=== PATIENT | male | born 1945 | race Caucasian/White ===

== ENCOUNTER → 2017-01-31 | Day surgery (SDC) | payer BC ==
[2017-01-24 08:22] VITALS: BMI 34.0
[~2017-01-31] VITALS: Ht 175.3 cm; Wt 106.8 kg
[~2017-01-31] MED LIST: ASPCH81X PO; CALC600T9 PO; CARV12.52 PO; CYAN10005 PO; LIDOCAINE HCL 2% 2 ML VIAL (20MG/ML) ONE; MULT-513 PO; NTRGSL/4 UT; PANT40TA PO; PHENYLEPHRINE 100MCG/ML 5ML SYR ONE; PROPOFOL IV EMULSION 10 MG/ML 20 ML VIAL IV ONE; ROSU40TA PO; SODIUM CHLORIDE 0.9% 500ML 500 ML IV ONE; WARF5TAB90 PO; ZNTT/150 PO; [UNRECOGNIZED DRUG - CODE] PO
--- NOTE | 2017-01-31 09:53 | Endo History and Physical ---
History & Physical Date of Service: Jan 31, 2017. Chief Complaint: h/o polyps Referring Physician: History of Present Illness h/o polyps Past Medical History Diabetes, Angioplasty/Stent, Male Genitourinary Prob., Gastrointestinal Disorder , Reflux, Blood Dyscrasias, Cancer, High Cholesterol, Heart Disease, Hypertension, Thrombophlebitis, COPD, Implantable Defibrillator, Other, [place] Past Surgical History Hx Cardiac Surgery: Yes (CABG X 2; 6 TOTAL STENTS; MULTIPLE CARDIAC CATHS) Hx Internal Defibrillator: Yes ([employer]TRON[employer] DEVICE) Hx Pacemaker: Yes (MEDTRON[employer] DEVICE) Hx Abdominal Surgery: Yes ([facility]) Hx of Implantable Prosthesis: No Hx Post-Op Nausea and Vomiting: No Hx Cancer Surgery: Yes (RT EAR EXCISION) Hx Thoracic Surgery: No Hx Orthopedic: No Hx Urinary Tract Surgery: No Family History Colon CA, Polyp Social History Smoking Status: Never Smoker Hx Substance Use: No Hx Alcohol Use: No Allergies Coded Allergies: Lisinopril (Verified Allergy, Unknown, COUGH, 01/24/17) Milk Protein Extract (Verified Allergy, Unknown, HIVES, 01/24/17) Mometasone (Verified Allergy, Unknown, HIVES, 01/24/17) Morphine (Verified Allergy, Unknown, UNKNOWN, 01/24/17) Niacin (Verified Allergy, Unknown, FLUSHING AND ITCHING, 01/24/17) Adhesives (Verified Adverse Reaction, Unknown, OPSITE DRESSING = RASH, ) Pregabalin (Verified Adverse Reaction, Unknown, MOOD CHANGES, 01/24/17) Valsartan (Verified Adverse Reaction, Unknown, COUGH, 01/31/17) Current Medications Reported Home Medications Medications Dose Route/Sig Max Daily Dose Days Date Category Dose Instructions Zantac (Ranitidine HCl) 150 Mg Tab 2 Tab PO HS 01/24/17 Reported Protonix (Pantoprazole Sodium) 40 Mg Tab 40 Mg PO QAM 01/24/17 Reported Coreg (Carvedilol) 12.5 Mg Tab 12.5 Mg PO BID 01/24/17 Reported Crestor (Rosuvastatin Calcium) 40 Mg Tab 40 Mg PO QPM 01/24/17 Reported Calcium + D (Calcium Carbonate-Vitamin D) 1 Tab Tab 1 Tab PO QAM 01/24/17 Reported Aspirin Chewable (Aspirin) 81 Mg Chew 81 Mg PO QAM 01/24/17 Reported Iron Chews Pediatric (Carbonyl Iron) 15 Mg Chw 15 Mg PO DAILY PRN 12/31/13 Reported Vitamin B-12 (Cyanocobalamin) 1,000 Mcg Tab 1,000 Mcg PO PRN 12/31/13 Reported Coumadin (Warfarin Sodium) 5 Mg Tab 5 Mg PO UD 12/31/13 Reported TAKE DIRECTED BY ANTICOAGULATION CLINIC. @ PRESENT TAKES 7.5MG EVERY DAY EXCEPT MON TAKES 5 MG. Mvi With Minerals (Multivitamins/Minerals) Tab 1 Tablet PO QAM 06/15/11 Reported Nitrostat (Nitroglycerin) 0.4 Mg Tab 0.4 Mg UT PRN 06/15/11 Reported Vital Signs Weight (Kilograms): 106.82 Height (Feet): 5 Height (Inches): 9 Physical Exam General Appearance: WD/WN, no apparent distress Assessment and Plan colonoscopy today.
[2017-01-31 09:58] VITALS: Ht 175.3 cm; Wt 106.8 kg
--- NOTE | 2017-01-31 10:46 | Discharge Instructions ---
Endoscopy Patient Instructions Date / Procedure(s) Performed Jan 31, 2017. Colonoscopy Allergy Information Coded Allergies: Lisinopril (Verified Allergy, Unknown, COUGH, 01/24/17) Milk Protein Extract (Verified Allergy, Unknown, HIVES, 01/24/17) Mometasone (Verified Allergy, Unknown, HIVES, 01/24/17) Morphine (Verified Allergy, Unknown, UNKNOWN, 01/24/17) Niacin (Verified Allergy, Unknown, FLUSHING AND ITCHING, 01/24/17) Adhesives (Verified Adverse Reaction, Unknown, OPSITE DRESSING = RASH, ) Pregabalin (Verified Adverse Reaction, Unknown, MOOD CHANGES, 01/24/17) Valsartan (Verified Adverse Reaction, Unknown, COUGH, 01/31/17) Discharge Date / Findings Jan 31, 2017. diverticulosis Medication Instructions Stopped Medication(s): ASPIRIN, COUADIN. VITAMINS-LAST DOSE 01/25/17 CRESTOR-LAST DOSE 01/29/17 Restart Stopped Medication(s): OK to resume home medications as above Provider Instructions Activity Restrictions - No exercising or heavy lifting for 24 hours. - Do not drink alcohol the day of the procedure. - Do not drive a car or operate machinery until the day after the procedure. - Do not make any important decisions or sign important papers in 24 hours after the procedure. Following Day: - Return to full activity which may include returning to work/school. Diet Start your diet with liquids and light foods (jello, soup, juice, toast). Then eat your usual diet if not nauseated. Treatment For Common After Affects For mild abdominal pain, bloating, or excessive gas: - Rest - Eat lightly - Lie on right side Follow-Up Information Follow-up with DR RILEY as scheduled Anesthesia Information What You Should Know You have had a procedure that required some medicine to reduce anxiety and discomfort. This treatment is called moderate sedation. After receiving the treatment, you may be sleepy, but you will be able to breathe on your own. The effects of the treatment may last for several hours. Follow these instructions along with Activity/Diet recommendations noted above: * Do NOT do anything where dizziness or clumsiness would be dangerous. * Rest quietly at home today, then you can be up and about tomorrow. * Have a responsible person stay with you the rest of today. * You may have had an I.V. today. If so, you may take the dressing off later today. Recommendations Call your doctor if: * Trouble breathing * Continuous vomiting for more than 24 hours * Temperature above 101 degrees * Severe abdominal pain or bloating * Pain not relieved by pain medicine ordered * There is increased drainage or redness from any incision * A large amount of rectal bleeding greater than 2-3 tablespoons. (If you had a polyp/s removed or have hemorrhoids, a small amount of blood - from the rectum is to be expected.) * You have any unanswered questions or concerns. IN THE EVENT OF A SERIOUS EMERGENCY, GO TO THE NEAREST EMERGENCY ROOM Your discharge instructions were prepared by provider Diane Rachel. Patient Instructions Signature Page Daniel Norton Patient (or Guardian) Signature/Date: I have read and understand the instructions given to me by my caregivers. Caregiver/RN/Doctor Signature/Date: The above-named patient and/or guardian has received patient instructions on this date. + Original Patient Signature Page (only) stays with chart. Please make copy for patient.
--- NOTE | 2017-01-31 10:46 | GI REPORT ---
Procedure Date: 01/31/2017 9:57 AM Procedure: Colonoscopy Indications: Surveillance: Personal history of adenomatous polyps on last colonoscopy 3 years ago Medicines: Propofol per Anesthesia Complications: No immediate complications. Estimated blood loss: None. Estimated Blood Loss: Estimated blood loss: none. Procedure: Pre-Anesthesia Assessment: - Prior to the procedure, a History and Physical was performed, and patient medications, allergies and sensitivities were reviewed. The patient's tolerance of previous anesthesia was reviewed. - The risks and benefits of the procedure and the sedation options and risks were discussed with the patient. All questions were answered and informed consent was obtained. - Patient identification and proposed procedure were verified prior to the procedure by the physician and the nurse. The procedure was verified in the pre-procedure area in the procedure room. - Mental Status Examination: alert and oriented. Airway Examination: normal oropharyngeal airway and neck mobility. Respiratory Examination: clear to auscultation. CV Examination: normal. Abdominal Examination: bowel sounds present, abdomen soft and non-tender, no masses or organomegaly noted. - ASA Grade Assessment: III - A patient with severe systemic disease. After I obtained informed consent, the scope was passed under direct vision. Throughout the procedure, the patient's blood pressure, pulse, and oxygen saturations were monitored continuously. The scope was introduced through the anus with the intention of advancing to the cecum. The scope was advanced to the ascending colon before the procedure was aborted. Medications were given. The patient tolerated the procedure well. The colonoscopy was performed with difficulty due to ventral hernia. Successful completion of the procedure was aided by using manual pressure and straightening and shortening the scope to obtain bowel loop reduction. The patient tolerated the procedure fairly well. The quality of the bowel preparation was good. Findings: The perianal and digital rectal examinations were normal. Pertinent negatives include normal sphincter tone and no palpable rectal lesions. Multiple small and large-mouthed diverticula were found in the entire colon. The retroflexed view of the distal rectum and anal verge was normal and showed no anal or rectal abnormalities. Impression: - Diverticulosis in the entire examined colon. - Unable to advance scope beyond the ascending colon secondary to looping and ventral hernia. - The distal rectum and anal verge are normal on retroflexion view. - No specimens collected. Recommendation: - Repeat colonoscopy in 1 year because the examination was incomplete and for surveillance. - Return to primary care physician as previously scheduled. - Discharge patient to home. Diane Rachel D.O. Diane Rachel DO 01/31/2017 10:45:48 AM This report has been signed electronically. Note Initiated On: 01/31/2017 9:57 AM I attest to the content of the Intraoperative Record and orders documented therein, exceptions below
[2017-01-31 11:16] VITALS: BP 114/72; PULSE 64; O2SAT 95
--- NOTE | 2017-01-31 11:29 | Anesthesiology Progress Note ---
Anesthesia Post Op Note Date & Time Jan 31, 2017 at 11:29 Vital Signs Pain Intensity: 0 Vital Signs Past 12 Hours Date Time Temp Pulse Resp B/P (MAP) Pulse Ox O2 Delivery O2 Flow Rate FiO2 01/31/17 11:16 64 16 114/72 (86) 95 Room Air 01/31/17 11:01 68 16 112/77 (89) 93 Room Air 01/31/17 10:46 73 14 109/69 (82) 95 Room Air 01/31/17 09:57 36.6 80 20 126/74 (91) 96 Room Air Notes Mental Status: alert / awake / arousable, participated in evaluation Pt Amnestic to Procedure: Yes Nausea / Vomiting: adequately controlled Pain: adequately controlled Airway Patency, RR, SpO2: stable & adequate BP & HR: stable & adequate Hydration State: stable & adequate Anesthetic Complications: no major complications apparent Awake, doing well, VSS.
== END | disposition home or self-care (01) ==
LOC: C.GI 09:25
PROVIDERS: ATTEND Internal Medicine
DX: Z12.11 Encounter for screening for malignant neoplasm of colon (principal); Z86.010 Personal history of colon polyps; K57.30 Diverticulosis of large intestine without perforation or abscess without bleeding; I25.2 Old myocardial infarction; I25.10 Atherosclerotic heart disease of native coronary artery without angina pectoris; Z95.1 Presence of aortocoronary bypass graft; Z95.5 Presence of coronary angioplasty implant and graft; E78.00 Pure hypercholesterolemia, unspecified; E11.9 Type 2 diabetes mellitus without complications; J44.9 Chronic obstructive pulmonary disease, unspecified; D75.9 Disease of blood and blood-forming organs, unspecified; Z80.0 Family history of malignant neoplasm of digestive organs; Z95.810 Presence of automatic (implantable) cardiac defibrillator; Z79.01 Long term (current) use of anticoagulants; Z79.82 Long term (current) use of aspirin; Z79.899 Other long term (current) drug therapy

== ENCOUNTER 2023-08-22 15:51 | Inpatient (IN) ==
--- NOTE | 2023-08-22 16:41 | Emergency Department Note ---
Impression & Plan Hypoxia, Elevated troponin, Cough ED Provider Note NAME: HARJIT FRANCOIS AGE: 78 SEX: M : 1945 ARRIVES VIA: Walk-In INFORMANT: Patient ED PROVIDER(S): Jose Darnell DO CHIEF COMPLAINT: shortness of breath HPI: Patient is a 78-year-old male with a past medical history of an ICD, TB who presents to the ER for shortness of breath associated with a cough, congestion, runny nose, and a sore throat. Symptoms started 3 days ago. They have been progressing. He had an episode with coughing where he almost vomited. He denies any chest pain or belly pain. No nausea. No dysuria, urgency, or frequency. He normally does not wear oxygen. He denies any other exacerbating or remitting factors. ADDITIONAL HISTORY OBTAINED: Per HPI Chronic Medical/Social Conditions Affecting Care: Per HPI PAST MEDICAL HISTORY:See Below PAST SURGICAL HISTORY:See Below FAMILY HISTORY:See Below SOCIAL HISTORY:See Below HOME MEDICATIONS:See Below ALLERGIES:See Below VITALS:See Below PHYSICAL EXAMINATION: GENERAL: Sitting up in bed, alert, slightly ill-appearing with intermittent cough EYE EXAM: normal conjunctiva. PERRL and EOM's grossly intact. OROPHARYNX: no exudate, no erythema, lips, buccal mucosa, and tongue normal and mucous membranes are moist LUNGS: Faint wheezing bilateral. Normal chest wall mechanics HEART: no murmurs, S1 normal and S2 normal ABDOMEN: abdomen soft, non-tender, normo-active bowel sounds, no masses, no rebound or guarding. UPPER EXTREMITIES: upper extremities are grossly normal. LOWER EXTREMITIES: No pitting edema. Calves are equal bilaterally NEURO EXAM: Normal sensorium, cranial nerves II-XII grossly intact, normal speech, no gross weakness of arms, no gross weakness of legs. MEDICAL DECISION MAKING: Patient is a 78-year-old male who presents ER for above-stated complaint. IV was established blood work was obtained. Labs show no significant leukocytosis or anemia. INR unremarkable. BMP along with LFTs bilirubin was remarkable for T. bili of 1.1. Lactic acid 1.5. Troponin elevated at 20.7. Viral panel was negative. Based on symptoms I do favor is most consistent with a viral URI. He was given Rocephin and azithromycin. He was also given IV fluids. He was updated bedside. He remained on 2 L nasal cannula while in the ER. Discussed the case with the hospitalist for further evaluation management and treatment. Did consider PE but in light of patient taking Eliquis I favor this much less likely and was not explored any further. Discussed the case with [place] hospitalist for further evaluation management treatment. Do favor the slightly full troponin is likely secondary to the hypoxia and demand ischemia. Consults/Care Managements Discussions: Per [facility] Triage Nursing notes reviewed. Limited review of prior medical records performed Vital Signs: reviewed and remarkable for hypoxic, tachycardic, hypertensive and borderline febrile Differential diagnosis: Differential diagnosis includes etiologies such as sepsis, UTI, pneumonia, metabolic, electrolyte abnormalities, cardiac sources, intracerebral event, toxicologic, neurological, as well as others were entertained. ER treatment provided: See below Diagnostics interpreted by me include EKG and cardiac monitoring as listed below: -Cardiac Monitoring: An order was placed for continuous cardiac monitoring. The monitor shows a rate of 70 with sinus rhythm. -ECG: Sinus rhythm rate of 79 Normal axis No PVCs QTc 387 -Laboratory studies:Interpreted by me as stated above in MDM and shown below. Imaging studies: Xrays: As interpreted by me: Portable AP upright 1 view of the chest shows no focal infiltrate CTs show: None Procedures: None Critical Care: I have personally spent 35 minutes of critical care time in the direct management of this patient. This includes bedside care, interpretation of diagnostic studies, and testing, discussion with consultants, patient, and family members, and other required patient management activities. This 35 minutes is in excess of all separately billable procedures. Past Med/Surg History Medical History Hx of basal cell carcinoma ear Lyme disease hx ~12/2020. no current issues. Sinus bradycardia History of blood clots JUNE 2020...PT REPORTS RECEIVED CHAYA AND CHAYA VACCINE ON JULY 10, 2020...2 WEEKS LATER BLOOD PRESSURE ELEVATED, ECHO DONE AND DX WITH BLOOD CLOT IN HEART...reason for plavix daily History of tuberculosis S - no current issues History of cough r/t gastric reflux Erythema nodosum BEEN TREATED IN PAST - no current issues Herniated disc LUMBAR AREA Osteoarthritis BPH (benign prostatic hyperplasia) Prediabetes Colon polyps PRE-CANCEROUS in 2020. 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 History of tooth extraction History of tonsillectomy History of endoscopic sinus surgery History of cholecystectomy lap choley History of heart artery stent TOTAL 4 STENTS PLACED 2003 [facility] TOTAL 2 STENTS 2009 IN [facility] History of cardiac cath 1996, 2003 (2 CARDIAC CATHS IN 2003) History of coronary artery bypass graft 2 VESSELS 1996 IN [place] Family History Aunt Family hx of colon cancer Family history of diabetes mellitus Grandmother Family history of diabetes mellitus Aunt Family hx of colon cancer Aunt Family hx of colon cancer Sister Family history of reaction to anesthesia "CAN'T REMEMBER" Social History Smoking Status: Never smoker Second Hand Exposure: No; Do You Dip or Chew Tobacco: No; Hx Alcohol Use: No Hx Substance Use: No Preferred Language: Sri Lankan Communication Ability: Effective Insulation Supervisor Required: No Beliefs That Will Affect Care: None Current Living Situation: Spouse Feels Safe at Home: Yes Assistive Devices: Glasses Allergies Allergies Allergy/AdvReac Type Severity Reaction Status Date / Time mometasone furoate Allergy Intermediate HIVES/RASH Verified 08/22/23 17:30 niacin Allergy Intermediate FLUSHING Verified 08/22/23 17:29 AND ITCHING pregabalin Allergy Intermediate RASH & Verified 08/22/23 17:29 MOOD CHANGES morphine Allergy Unknown UNKNOWN ON Verified 08/22/23 17:29 GMG MED LIST atorvastatin [From Lipitor] AdvReac Intermediate NEURO Verified 08/22/23 17:29 COMPLICATIONS lisinopril AdvReac Intermediate COUGH Verified 08/22/23 17:29 vaccine adjuvant system, AdvReac Intermediate INFLUENZA-LIKE Verified 08/22/23 17:29 [id number] liposomal ILLNESS [From Shingrix ()] valsartan AdvReac Intermediate Cough Verified 08/22/23 17:29 varicella-zoster virus AdvReac Intermediate INFLUENZA-LIKE Verified 08/22/23 17:29 glycoprotein E, recombinant ILLNESS [From Shingrix ()] adhesive AdvReac Mild OPSITE-RASH Verified 08/22/23 17:29 Home Meds Home Medications Medication Instructions Recorded Confirmed aspirin 81 mg tablet,delayed 81 mg PO DAILY 07/30/18 08/22/23 release (Jimmie Low Dose Aspirin) carvedilol 25 mg tablet (Coreg) 12.5 mg PO BID 07/30/18 08/22/23 pantoprazole 40 mg tablet,delayed 40 mg PO QAM 07/30/18 08/22/23 release (Protonix) rosuvastatin 40 mg tablet (Crestor) 20 mg PO DAILY 07/30/18 08/22/23 furosemide 20 mg tablet (Lasix) 20 mg PO 3XWK 09/22/20 08/22/23 nitroglycerin 0.4 mg sublingual 0.4 mg sublingual UD PRN Chest Pain 09/22/20 08/22/23 tablet (Nitrostat) multivitamin (Daily Multi-Vitamin 1 tab PO QAM 01/02/21 08/22/23 tablet) apixaban 5 mg tablet (Eliquis) 5 mg PO BID 03/21/23 08/22/23 benzonatate 100 mg capsule 100 - 200 mg PO TID PRN Cough 08/22/23 08/22/23 cyanocobalamin (vitamin B-12) 1,000 mcg PO DAILY 08/22/23 08/22/23 1,000 mcg tablet (Vitamin B-12) Results & Data (ED) Vital Signs Vital Signs - 24 hr 08/22/23 15:52 08/22/23 16:12 08/22/23 16:12 Temperature 37.6 C H Temperature Source Oral Pulse Rate 99 H Pulse Rate [Right Radial] Respiratory Rate 18 Blood Pressure 172/84 H Blood Pressure [Left Arm] Blood Pressure Mean 113 Blood Pressure Mean [Left Arm] Pulse Oximetry 90 85 L Oxygen Delivery Method Room Air Room Air Nasal Cannula Oxygen Flow Rate 2 Sepsis Recent Fever Within 48 Hours No Sepsis New/Unexplained Change in Mental Status N/A Sepsis Action Taken by Nursing No Action Required 08/22/23 16:56 08/22/23 18:00 Temperature Temperature Source Pulse Rate 83 Pulse Rate [Right Radial] 81 Respiratory Rate 20 Blood Pressure Blood Pressure [Left Arm] 141/86 H Blood Pressure Mean Blood Pressure Mean [Left Arm] 104 Pulse Oximetry 96 Oxygen Delivery Method Nasal Cannula Oxygen Flow Rate 2 Sepsis Recent Fever Within 48 Hours Sepsis New/Unexplained Change in Mental Status Sepsis Action Taken by Nursing Laboratory Data 08/22/23 17:15 08/22/23 17:15 Lab Results 08/22/23 08/22/23 08/22/23 Range/Units 16:01 16:01 16:01 WBC (4.8-10.8) K/ul RBC (4.70-6.10) M/uL Hgb (14.0-18.0) g/dl Hct (42.0-52.0) % MCV (80.0-100.0) fL MCH (25.0-34.0) pg MCHC (32.0-36.0) g/dL RDW Std Deviation (36.4-46.3) fL RDW Coeff of Jerilyn (11.5-14.5) % Plt Count (130-400) K/uL MPV (9.4-12.4) fL Immature Gran % (Auto) % Neut % (Auto) % Lymph % (Auto) % Canadian % (Auto) % Eos % (Auto) % Baso % (Auto) % Neut # (Auto) (1.40-6.50) K/uL Lymph # (Auto) (1.20-3.40) K/uL Canadian # (Auto) (0.11-0.59) K/uL Eos # (Auto) (0.00-0.50) K/uL Baso # (Auto) (0.00-0.20) K/uL Immature Gran # (Auto) (0.01-0.20) K/uL PT (9.0-12.0) Seconds INR (0.9-1.1) APTT (21-31) Seconds PTT Ratio Sodium (136-145) mmol/L Potassium (3.5-5.1) mmol/L Chloride (98-107) mmol/L Carbon Dioxide (21-32) mmol/L Anion Gap (3-11) BUN (6-23) mg/dl Creatinine (0.6-1.4) mg/dl Est Cr Clr Drug Dosing ml/min Est GFR ( Amer) ml/min Est GFR (Non-Af Amer) ml/min BUN/Creatinine Ratio (10-20) Glucose (70-99(Fasting)) mg/dl Lactate (0.4-2.0) mmol/L Calcium (8.6-10.3) mg/dl Total Bilirubin (0.2-1.0) mg/dl AST (13-39) U/L ALT (7-52) U/L Alkaline Phosphatase (34-104) U/L Troponin I High Sens (0-20) pg/ml Total Protein (6.0-8.3) gm/dl Albumin (3.4-5.0) gm/dl Globulin (2.5-4.0) gm/dl Albumin/Globulin Ratio (0.9-2) Adenovirus (PCR) Not Detected (NotDetected) B. pertussis DNA (PCR) Not Detected (NotDetected) B.parapertussis DNA PCR Not Detected (NotDetected) C. pneumoniae DNA (PCR) Not Detected (NotDetected) Coronavirus OC43 (PCR) Not Detected (NotDetected) Coronavirus HKU1 (PCR) Not Detected (NotDetected) Coronavirus 229E (PCR) Not Detected (NotDetected) SARS-CoV-2 (PCR) NEGATIVE Not Detected (Negative) Coronavirus NL63 (PCR) Not Detected (NotDetected) Human Metapneumovir PCR Not Detected (NotDetected) Influenza Type A (PCR) Negative Not Detected (Neg) Influenza Type B (PCR) Negative (Neg) M. pneumoniae (PCR) (NotDetected) Parainfluenza 1 (PCR) (NotDetected) Parainfluenza 2 (PCR) (NotDetected) Parainfluenza 3 (PCR) (NotDetected) Parainfluenza 4 (PCR) (NotDetected) RSV (RT-PCR) (Neg) RSV (PCR) (NotDetected) Entero/Rhino (PCR) (NotDetected) 08/22/23 08/22/23 Range/Units 16:01 17:15 WBC 8.92 (4.8-10.8) K/ul RBC 4.79 (4.70-6.10) M/uL Hgb 13.7 L (14.0-18.0) g/dl Hct 42.4 (42.0-52.0) % MCV 88.5 (80.0-100.0) fL MCH 28.6 (25.0-34.0) pg MCHC 32.3 (32.0-36.0) g/dL RDW Std Deviation 42.5 (36.4-46.3) fL RDW Coeff of Jerilyn 13.0 (11.5-14.5) % Plt Count 187 (130-400) K/uL MPV 10.9 (9.4-12.4) fL Immature Gran % (Auto) 0.7 % Neut % (Auto) 68.6 % Lymph % (Auto) 14.1 % Canadian % (Auto) 13.6 % Eos % (Auto) 2.6 % Baso % (Auto) 0.4 % Neut # (Auto) 6.12 (1.40-6.50) K/uL Lymph # (Auto) 1.26 (1.20-3.40) K/uL Canadian # (Auto) 1.21 H (0.11-0.59) K/uL Eos # (Auto) 0.23 (0.00-0.50) K/uL Baso # (Auto) 0.04 (0.00-0.20) K/uL Immature Gran # (Auto) 0.06 (0.01-0.20) K/uL PT 11.9 (9.0-12.0) Seconds INR 1.1 (0.9-1.1) APTT 34 H (21-31) Seconds PTT Ratio 1.2 Sodium 138 (136-145) mmol/L Potassium 4.0 (3.5-5.1) mmol/L Chloride 103 (98-107) mmol/L Carbon Dioxide 28 (21-32) mmol/L Anion Gap 7 (3-11) BUN 11 (6-23) mg/dl Creatinine 0.92 (0.6-1.4) mg/dl Est Cr Clr Drug Dosing 82.3 ml/min Est GFR ( Amer) 92.7 ml/min Est GFR (Non-Af Amer) 79.9 ml/min BUN/Creatinine Ratio 12.0 (10-20) Glucose 112 H (70-99(Fasting)) mg/dl Lactate 1.5 (0.4-2.0) mmol/L Calcium 9.1 (8.6-10.3) mg/dl Total Bilirubin 1.1 H (0.2-1.0) mg/dl AST 17 (13-39) U/L ALT 11 (7-52) U/L Alkaline Phosphatase 60 (34-104) U/L Troponin I High Sens 20.7 H (0-20) pg/ml Total Protein 6.7 (6.0-8.3) gm/dl Albumin 4.0 (3.4-5.0) gm/dl Globulin 2.7 (2.5-4.0) gm/dl Albumin/Globulin Ratio 1.5 (0.9-2) Adenovirus (PCR) (NotDetected) B. pertussis DNA (PCR) (NotDetected) B.parapertussis DNA PCR (NotDetected) C. pneumoniae DNA (PCR) (NotDetected) Coronavirus OC43 (PCR) (NotDetected) Coronavirus HKU1 (PCR) (NotDetected) Coronavirus 229E (PCR) (NotDetected) SARS-CoV-2 (PCR) (Negative) Coronavirus NL63 (PCR) (NotDetected) Human Metapneumovir PCR (NotDetected) Influenza Type A (PCR) (Neg) Influenza Type B (PCR) Not Detected (Neg) M. pneumoniae (PCR) Not Detected (NotDetected) Parainfluenza 1 (PCR) Not Detected (NotDetected) Parainfluenza 2 (PCR) Not Detected (NotDetected) Parainfluenza 3 (PCR) Not Detected (NotDetected) Parainfluenza 4 (PCR) Not Detected (NotDetected) RSV (RT-PCR) Negative (Neg) RSV (PCR) Not Detected (NotDetected) Entero/Rhino (PCR) Not Detected (NotDetected) Administered Medications Discontinued Medications Sodium Chloride (Nss) 1,000 mls @ 999 mls/hr IV .[id number] ONE Stop: 08/22/23 17:35 Last Infusion: 08/22/23 18:23 Dose: Infused Documented By: Admin: 08/22/23 17:16 Dose: 999 mls/hr Documented By: LILY Ceftriaxone Sodium (Rocephin) 2,000 mg in 50 mls @ 100 mls/hr IV NOW STA Stop: 08/22/23 18:51 Last Infusion: 08/22/23 19:09 Dose: Infused Documented By: Admin: 08/22/23 18:33 Dose: 100 mls/hr Documented By: LILY Imaging Data Radiologist's Impression: Chest X-Ray 08/22/23 16:02 XR chest 1V not portable CLINICAL HISTORY: Cough. COMPARISON STUDY: Chest radiograph April 07, 2021. FINDINGS: A left subclavian pacer/AICD and median sternotomy wires are incidentally noted. There is no pneumothorax or pleural effusion. Moderate elevation of the right hemidiaphragm is unchanged. Linear bibasilar densities favor atelectasis. There is no consolidation to suggest pneumonia. Cardiomegaly is unchanged. No evidence for pulmonary edema. IMPRESSION: No acute cardiopulmonary findings. No change in appearance of the chest. ACT 112: Negative or not required by law. Electronically signed by: Jeffery Patterson M.D. 08/22/2023 4:51 PM Discharge Plan Visit Data Chief Complaint: Flu Like Symptoms Stated Complaint: COUGH, FEELS WARM/FEVER ED Provider: Jose Darnell Discharge Problem: Hypoxia, Elevated troponin, Cough Forms Stand Alone Forms: My [facility] Prescriptions Prescriptions: No Action carvedilol [Coreg] 25 mg Tablet 12.5 mg PO BID aspirin [Jimmie Low Dose Aspirin] 81 mg Tablet,Delayed Release (Dr/Ec) 81 mg PO DAILY pantoprazole [Protonix] 40 mg Tablet,Delayed Release (Dr/Ec) 40 mg PO QAM rosuvastatin [Crestor] 40 mg Tablet 20 mg PO DAILY furosemide [Lasix] 20 mg Tablet 20 mg PO 3XWK Patient Comments: MON, MON AND MON MORNING HOURS Rx Instructions: Monday, Monday, Monday nitroglycerin [Nitrostat] 0.4 mg Tablet, Sublingual 0.4 mg sublingual UD PRN (Reason: Chest Pain) Patient Comments: pt can't remember the last time he used multivitamin [Daily Multi-Vitamin] Tablet 1 tab PO QAM Eliquis 5 mg Tablet 5 mg PO BID cyanocobalamin (vitamin B-12) [Vitamin B-12] 1,000 mcg Tablet 1,000 mcg PO DAILY benzonatate 100 mg capsule 100 - 200 mg PO TID PRN (Reason: Cough) Referrals Referrals: Riana Bennett CRNP [Primary Care Provider] - Discharge Problem: Cough Qualifiers: Cough type: unspecified Qualified Code(s): R05.9 - Cough, unspecified
--- NOTE | 2023-08-22 16:52 | XRay Report ---
XR chest 1V not portable CLINICAL HISTORY: Cough. COMPARISON STUDY: Chest radiograph April 07, 2021. FINDINGS: A left subclavian pacer/AICD and median sternotomy wires are incidentally noted. There is n o pneumothorax or pleural effusion. Moderate elevation of the right hemidiaphragm is unchanged. Linea r bibasilar densities favor atelectasis. There is no consolidation to suggest pneumonia. Cardiomegaly is unchanged. No evidence for pulmonary edema. IMPRESSION: No acute cardiopulmonary findings. No change in appearance of the chest. ACT 112: Negative or not required by law. Electronically signed by: Jeffery Patterson M.D. 08/22/2023 4:51 PM
[2023-08-22 16:58] LABS: Influenza A virus by PCR Negative (Neg); Influenza B virus by PCR Negative (Neg); RSV by PCR Negative (Neg); SARS CoV2 RNA(COVID-19) Ceph NEGATIVE (Negative)
[2023-08-22] MEDS: SODIUM CHLORIDE 0.9% 1,000 ML IV ONE (17:16)
[2023-08-22 17:37] LABS: Basophils # (auto) 0.04 K/uL (0.00-0.20); Basophils % (auto) 0.4 %; Eosinophils # (auto) 0.23 K/uL (0.00-0.50); Eosinophils % (auto) 2.6 %; Hematocrit (blood only) 42.4 % (42.0-52.0); Hemoglobin 13.7 g/dl (14.0-18.0); Immature Granulocytes # (auto) 0.06 K/uL (0.01-0.20); Immature Granulocytes % (auto) 0.7 %; Lymphocytes # (auto) 1.26 K/uL (1.20-3.40); Lymphocytes % (auto) 14.1 %; Mean Corpuscular Hemoglobin 28.6 pg (25.0-34.0); Mean Corpuscular Hgb Conc 32.3 g/dL (32.0-36.0); Mean Corpuscular Volume 88.5 fL (80.0-100.0); Mean Platelet Volume 10.9 fL (9.4-12.4); Monocytes # (auto) 1.21 K/uL (0.11-0.59); Monocytes % (auto) 13.6 %; Neutrophils # (auto) 6.12 K/uL (1.40-6.50); Neutrophils % (auto) 68.6 %; Platelet Count 187 K/uL (130-400); RDW Standard Deviation 42.5 fL (36.4-46.3); Red Blood Count 4.79 M/uL (4.70-6.10); White Blood Count 8.92 K/ul (4.8-10.8)
[2023-08-22 17:52] LABS: Adenovirus PCR Not Detected (NotDetected); Bordetella parapertussis PCR Not Detected (NotDetected); Bordetella pertussis PCR Not Detected (NotDetected); Chlamydia pneumoniae PCR Not Detected (NotDetected); Coronavirus 229E PCR Not Detected (NotDetected); Coronavirus CoV-2 (COVID19)PCR Not Detected (NotDetected); Coronavirus HKU1 PCR Not Detected (NotDetected); Coronavirus NL63 PCR Not Detected (NotDetected); Coronavirus OC43PCR Not Detected (NotDetected); Human Metapneumovirus PCR Not Detected (NotDetected); Influenza A PCR Not Detected (NotDetected); Influenza B PCR Not Detected (NotDetected); Mycoplasma pneumoniae PCR Not Detected (NotDetected); Parainfluenza Virus 1 PCR Not Detected (NotDetected); Parainfluenza Virus 2 PCR Not Detected (NotDetected); Parainfluenza Virus 3 PCR Not Detected (NotDetected); Parainfluenza Virus 4 PCR Not Detected (NotDetected); Respiratory Syncytial VirusPCR Not Detected (NotDetected); Rhinovirus/Enterovirus PCR Not Detected (NotDetected)
[2023-08-22 17:55] LABS: Albumin Globulin Ratio 1.5 (0.9-2); Bilirubin,Total 1.1 mg/dl (0.2-1.0); Calcium 9.1 mg/dl (8.6-10.3); Creatinine Clr Calc Pharmacy 82.3 ml/min; Est GFR (African American) 92.7 ml/min; Est GFR (Non-African American) 79.9 ml/min; Globulin 2.7 gm/dl (2.5-4.0); Total Protein 6.7 gm/dl (6.0-8.3)
[2023-08-22 18:01] LABS: Troponin I High Sensitivity 20.7 pg/ml (0-20)
[2023-08-22 18:12] LABS: INR 1.1 (0.9-1.1); Partial Thromboplastin Ratio 1.2; Partial Thromboplastin Time 34 Seconds (21-31); Prothrombin Time 11.9 Seconds (9.0-12.0)
[2023-08-22] MEDS: cefTRIAXone SODIUM 2,000 MG/50 ML BAG IV STA (18:33)
--- NOTE | 2023-08-22 18:48 | History & Physical Report ---
Date of Service August 22, 2023 Assessment & Plan (1) Acute hypoxic respiratory failure: (2) Cough: Plan Pt is a 78yoM with past medical history significant for type 2 diabetes, currently not on any medication, hyperlipidemia, chronic CAD status post CABG x2, status post 6 stents as per the patient, chronic systolic CHF, status post ICD and pacemaker, history of left ventricular mural thrombus on Eliquis, ischemic cardiomyopathy, hypertension, diverticulosis of colon, BPH, pernicious anemia admitted with acute hypoxic respiratory failure in the setting of a chronic cough.. 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) as well as many episodes of pneumonia Notes never smoked, no known sick contacts currently Presented to the ED for further evaluation, noted to be hypoxic in the 80s Biofire negative Chest XRAY with no acute changes VBG pending BNP pending Echo pending Chest CTA pending- noted pt on chronic anticoagulation Received empiric Rocephin and azithromycin in the ED chest xray indicates no pneumonia, pt without leukocytosis and afebrile, continue abx based on CTA chest results oxygen supplementation as needed Given chronicity of cough (pt notes years), pt Hx and new oxygen requirement, pulmonology consulted. Appreciate recs. symptomatic cough treatment Continue to monitor Elevated Trop CAD s/p stent placement HFrEF Pacemaker in situ Hx of mural thrombus HTN HLD EKG, trend trops, echo pending Significant cardiac Hx as above telemetry monitoring Continue home coreg, statin, aspirin, Eliquis and Lasix Consider cardiology consult for any noted lab/symptom changes from baseline Continue other home meds as ordered Diet: DMII/HH DVT prophylaxis: On home Eliquis Dispo: Med/Surg with tele History of Present Illness Chief Complaint: SOB Primary Care Provider: ALEIDA Chaves Pt is a 78yoM with past medical history significant for type 2 diabetes, currently not on any medication, hyperlipidemia, chronic CAD status post CABG x2, status post 6 stents as per the patient, chronic systolic CHF, EF of 40% to 45%, status post ICD and pacemaker, history of left ventricular mural thrombus on Eliquis, ischemic cardiomyopathy, hypertension, diverticulosis of colon, BPH, pernicious anemia admitted with acute hypoxic respiratory failure in the setting of a chronic cough.. 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 Presented to the ED for further evaluation, noted to be hypoxic in the 80s. Allergies Allergy/AdvReac Type Severity Reaction Status Date / Time mometasone furoate Allergy Intermediate HIVES/RASH Verified 08/22/23 17:30 niacin Allergy Intermediate FLUSHING Verified 08/22/23 17:29 AND ITCHING pregabalin Allergy Intermediate RASH & Verified 08/22/23 17:29 MOOD CHANGES morphine Allergy Unknown UNKNOWN ON Verified 08/22/23 17:29 GMG MED LIST atorvastatin [From Lipitor] AdvReac Intermediate NEURO Verified 08/22/23 17:29 COMPLICATIONS lisinopril AdvReac Intermediate COUGH Verified 08/22/23 17:29 vaccine adjuvant system, AdvReac Intermediate INFLUENZA-LIKE Verified 08/22/23 17:29 AS01B liposomal ILLNESS [From Shingrix (PF)] valsartan AdvReac Intermediate Cough Verified 08/22/23 17:29 varicella-zoster virus AdvReac Intermediate INFLUENZA-LIKE Verified 08/22/23 17:29 glycoprotein E, recombinant ILLNESS [From Shingrix (PF)] adhesive AdvReac Mild OPSITE-RASH Verified 08/22/23 17:29 Home Medications Medication Instructions Recorded Confirmed Type aspirin 81 mg tablet,delayed 81 mg PO DAILY 07/30/18 08/22/23 History release (Jimmie Low Dose Aspirin) carvedilol 25 mg tablet (Coreg) 12.5 mg PO BID 07/30/18 08/22/23 History pantoprazole 40 mg tablet,delayed 40 mg PO QAM 07/30/18 08/22/23 History release (Protonix) rosuvastatin 40 mg tablet (Crestor) 20 mg PO DAILY 07/30/18 08/22/23 History furosemide 20 mg tablet (Lasix) 20 mg PO 3XWK 09/22/20 08/22/23 History nitroglycerin 0.4 mg sublingual 0.4 mg sublingual UD PRN Chest Pain 09/22/20 08/22/23 History tablet (Nitrostat) multivitamin (Daily Multi-Vitamin 1 tab PO QAM 01/02/21 08/22/23 History tablet) apixaban 5 mg tablet (Eliquis) 5 mg PO BID 03/21/23 08/22/23 History benzonatate 100 mg capsule 100 - 200 mg PO TID PRN Cough 08/22/23 08/22/23 History cyanocobalamin (vitamin B-12) 1,000 mcg PO DAILY 08/22/23 08/22/23 History 1,000 mcg tablet (Vitamin B-12) Past Med/Surg History Medical History Hx of basal cell carcinoma ear Lyme disease hx ~12/2020. no current issues. Sinus bradycardia History of blood clots JUNE 2020...PT REPORTS RECEIVED CHAYA AND CHAYA VACCINE ON JULY 10, 2020...2 WEEKS LATER BLOOD PRESSURE ELEVATED, ECHO DONE AND DX WITH BLOOD CLOT IN HEART...reason for plavix daily History of tuberculosis S - no current issues History of cough r/t gastric reflux Erythema nodosum BEEN TREATED IN PAST - no current issues Herniated disc LUMBAR AREA Osteoarthritis BPH (benign prostatic hyperplasia) Prediabetes Colon polyps PRE-CANCEROUS in 2020. 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 History of tooth extraction History of tonsillectomy History of endoscopic sinus surgery History of cholecystectomy lap choley History of heart artery stent TOTAL 4 STENTS PLACED 2003 [facility] TOTAL 2 STENTS 2009 IN [facility] History of cardiac cath 1996, 2003 (2 CARDIAC CATHS IN 2003) History of coronary artery bypass graft 2 VESSELS 1996 IN [place] Family History Aunt Family hx of colon cancer Family history of diabetes mellitus Grandmother Family history of diabetes mellitus Aunt Family hx of colon cancer Aunt Family hx of colon cancer Sister Family history of reaction to anesthesia "CAN'T REMEMBER" Social History Smoking Status: Never smoker Second Hand Exposure: No; Do You Dip or Chew Tobacco: No; Hx Alcohol Use: No Hx Substance Use: No Preferred Language: Estonian Communication Ability: Effective Woolen Suiting Shrinker Required: No Beliefs That Will Affect Care: None Current Living Situation: Spouse Feels Safe at Home: Yes Assistive Devices: Glasses Review of Systems Review of Systems: All systems reviewed & are unremarkable except as noted in Subjective Physical Exam Physical Exam: General: Alert, oriented. No acute distress but sitting in chair at bedside rather than bed due to coughing fits Skin: No noted rashes or bruises Psych: Appropriate mood and affect Neuro: No gross deficits HEENT: NC/AT Chest: Nontender to palpation. CV: RRR Resp: Breath sounds decreased bilaterally, no increased effort of breathing. Abdomen: Soft, nontender, nondistended. Extremities: No edema in lower extremities bilaterally. Results & Data Results & Data Vital Signs (Past 12 Hours) Vital Signs Temp Pulse Pulse Resp BP BP Pulse Ox 08/22/23 18:00 81 20 141/86 H 96 08/22/23 16:56 83 08/22/23 16:12 08/22/23 16:12 85 L 08/22/23 15:52 37.6 C H 99 H 18 172/84 H 90 O2 Del Method O2 Flow Rate 08/22/23 18:00 Nasal Cannula 2 08/22/23 16:56 08/22/23 16:12 Nasal Cannula 2 08/22/23 16:12 Room Air 08/22/23 15:52 Room Air Diagnostic Findings Chest X-Ray 08/22/23 16:02 XR chest 1V not portable CLINICAL HISTORY: Cough. COMPARISON STUDY: Chest radiograph April 07, 2021. FINDINGS: A left subclavian pacer/AICD and median sternotomy wires are incidentally noted. There is no pneumothorax or pleural effusion. Moderate elevation of the right hemidiaphragm is unchanged. Linear bibasilar densities favor atelectasis. There is no consolidation to suggest pneumonia. Cardiomegaly is unchanged. No evidence for pulmonary edema. IMPRESSION: No acute cardiopulmonary findings. No change in appearance of the chest. ACT 112: Negative or not required by law. Electronically signed by: Jeffery Patterson M.D. 08/22/2023 4:51 PM Code Status & VTE Plan VTE Prophylaxis Plan VTE Prophylaxis will be ordered: Yes (2) Cough Cough type: unspecified Qualified Code(s): R05.9 - Cough, unspecified
[2023-08-22] MEDS: AZITHROMYCIN 500 MG in DEXTROSE 5% 250 ML IV STA (19:15)
[2023-08-22] MEDS ORDERED: NITROGLYCERIN SL 0.4 MG/TAB TAB SL PRN (21:26)
[2023-08-22 21:38] LABS: Base Excess VBG 1.5 mEq/L; HCO3 VBG 31 mmol/L; Oxygen Saturation VBG < 60.0 %; PCO2 VBG 70 mmHg (38-50); PO2 VBG < 20 mmHg; pH VBG 7.25 (7.36-7.41)
[2023-08-22] MEDS: APIXABAN 5 MG TABLET PO SCH (22:17)
[2023-08-22] MEDS: ACETAMINOPHEN 500 MG TAB PO PRN (22:18)
[2023-08-22] MEDS: carvediloL 12.5 MG TAB PO SCH (22:18)
[2023-08-22] MEDS: HYDROcodone/HOMATROPINE SYRUP 5MG/1.5MG 5ML UDP PO PRN (22:18)
[2023-08-23] MEDS: LORazepam 0.5 MG TAB PO PRN (01:14)
[2023-08-23] MEDS: ONDANSETRON INJ 2 MG/ML 2 ML VIAL IV PRN (01:14)
[2023-08-23 02:28] LABS: Basophils # (auto) 0.06 K/uL (0.00-0.20); Basophils % (auto) 0.6 %; Eosinophils % (auto) 2.1 %; Hematocrit (blood only) 39.6 % (42.0-52.0); Hemoglobin 12.8 g/dl (14.0-18.0); Immature Granulocytes # (auto) 0.05 K/uL (0.01-0.20); Immature Granulocytes % (auto) 0.5 %; Lymphocytes # (auto) 1.25 K/uL (1.20-3.40); Lymphocytes % (auto) 13.2 %; Mean Corpuscular Hemoglobin 28.9 pg (25.0-34.0); Mean Corpuscular Hgb Conc 32.3 g/dL (32.0-36.0); Mean Corpuscular Volume 89.4 fL (80.0-100.0); Mean Platelet Volume 10.3 fL (9.4-12.4); Monocytes # (auto) 1.35 K/uL (0.11-0.59); Monocytes % (auto) 14.3 %; Neutrophils # (auto) 6.55 K/uL (1.40-6.50); Neutrophils % (auto) 69.3 %; Platelet Count 173 K/uL (130-400); RDW Coefficient of Variation 12.9 % (11.5-14.5); RDW Standard Deviation 42.5 fL (36.4-46.3); Red Blood Count 4.43 M/uL (4.70-6.10); White Blood Count 9.46 K/ul (4.8-10.8)
[2023-08-23 02:39] LABS: Albumin Globulin Ratio 1.4 (0.9-2); Albumin Level 3.6 gm/dl (3.4-5.0); BUN Creatinine Ratio 10.5 (10-20); Bilirubin,Total 0.9 mg/dl (0.2-1.0); Calcium 8.6 mg/dl (8.6-10.3); Est GFR (African American) 96.9 ml/min; Est GFR (Non-African American) 83.6 ml/min; Globulin 2.5 gm/dl (2.5-4.0); Magnesium 1.8 mg/dl (1.7-2.4); Phosphorus 3.3 mg/dl (2.5-4.9); Potassium 3.9 mmol/L (3.5-5.1); Total Protein 6.1 gm/dl (6.0-8.3)
[2023-08-23] MEDS: guaiFENesin/DEXTROM SYRUP 100MG/10MG 5ML UDC PO PRN (05:42)
[2023-08-23 07:04] LABS: Estimated Average Glucose 134 mg/dl; Hemoglobin A1C 6.3 % (4.5-5.6)
[2023-08-23] MEDS: ASPIRIN 81 MG ECTAB PO SCH (08:23)
[2023-08-23] MEDS: ROSUVASTATIN CALCIUM 20 MG TAB PO SCH (08:23)
[2023-08-23] MEDS: CYANOCOBALAMIN (B-12) 500 MCG TABLET PO SCH (08:24)
[2023-08-23] MEDS: PANTOprazole 40 MG TAB PO SCH (08:24)
[2023-08-23] MEDS: MULTIVITAMIN TAB PO SCH (08:24)
[2023-08-23] MEDS: FUROSEMIDE 20 MG TAB PO SCH (08:25)
[2023-08-23] MEDS ORDERED: SODIUM CHLORIDE 0.65% NA SOLN 45 ML (OCEAN) PRN (09:29)
[2023-08-23] MEDS ORDERED: hydrOXYzine HCl 10 MG TAB PO PRN (09:29)
--- NOTE | 2023-08-23 09:36 | Pulmonary Consultation ---
Date of Consultation August 23, 2023 Assessment & Plan (1) Chronic cough: (2) Hypoxia: (3) Chronic rhinitis: Plan IMPRESSION: 78-year-old male with significant past medical history of coronary artery disease, CHF, and chronic cough who presents with worsening hypoxia and baseline cough requiring pulmonary consult. RECOMMENDATIONS: 1. Cough - Patient with chronic cough for the last 10 to 15 years. Typically uses Tessalon Perles which have not been improving his symptoms for the last 4 to 5 days. Patient does describe postnasal drip and no other red flag symptoms. Would recommend hydroxyzine or other antihistamine to be added to his treatment regime. He can use Hycodan cough syrup at night for breakthrough symptoms as had been previously written. He is on a PPI. Given the chronicity of this and his prior history of MAC infection, possible prior TB infection, and history of carcinoid tumors, would recommend CT chest. This would be fine to be obtained without contrast at this point. Would also CT the patient's sinuses to evaluate any contributing factors as well as the patient has had prior sinus surgery performed in [place]. His viral panel was negative today. His BNP was slightly elevated and he does have some peripheral edema. Would consider dosing his furosemide daily while in the hospital. This, this likely represents a chronic state which can be manage moving forward in the outpatient setting. We will evaluate the results of the CT scans and make further recommendations if necessary. 2. Hypoxia - Likely multifactorial in a 78-year-old male with chronic CHF generalized deconditioning. I was able to titrate the patient down to off of his supplemental oxygen while assessing him. Would encourage incentive spirometry and ambulation as tolerated. Would recommend to step evaluation prior to discharge to assess oxygen requirement. Patient is currently anticoagulated on Eliquis. Thromboembolic process much less likely, but not completely off the table. Would hold on CTA at this point pending continued workup. 3. Chronic rhinitis - Likely contributing to degree of his acute cough. Would recommend treatment for upper airway cough syndrome including antihistamine, PPI, nasal saline rinses, and topical nasal steroid. Unfortunately, he has an allergy to topical nasal steroid. Will add what we can to his regime. Thank you for allowing us to participate in the care of this patient. Pulmonary medicine will follow along for now. Supervising Physician Co-Signing Physician Notes I saw and evaluated the patient with Dmitri Anaya, and agree with findings and plan as documented in the note. 78-year-old male past medical history of pernicious anemia with antiparietal antibodies, parathyroid tumor s/p resection, history of CABG and coronary artery disease, CHF presenting with worsening cough Pulmonary consulted for the same Social history: Lifetime non-smoker CT chest 08/23/2023 personally reviewed: Linear atelectasis of the right lower lobe with elevated right hemidiaphragm No clear infiltrate Enlarged pulmonary artery with cardiomegaly No mediastinal adenopathy At the time of examination patient was not in any respiratory distress He was saturating 98% on 4 L nasal cannula, I went down to 2 L He stated that he has been having issues with his sinus drainage for approximately a week which has resulted into worsening cough The cough could be positional. When he does bring up phlegm is mostly clear. Lately has been having the feeling that he has phlegm but is not able to bring it up. Was having subjective fever but no chills. Denies any dysuria, no diarrhea. Constitutional: No acute distress HEENT: EOMI, PERRLA, suprasternal midline scar Respiratory system: Decreased air entry on the right lower side, no wheeze, no rhonchi, no crackles CVS: S1-S2 positive, no murmurs or gallops Abdomen: Soft, nontender, nondistended, positive bowel sounds x4 Extremities: +2 pulses bilaterally radialis/ dorsalis pedis, no cyanosis, minimal pitting edema bilateral lower extremity Neuro: Awake alert oriented x3 Psych: Normal mood and affect G/U: No Paige Plan: He likely has upper airway cough syndrome. Patient is on pantoprazole at home which we will continue There is no clear source of infection. Does not seem to be on any medications to cause him to cough. Elevated hemidiaphragm is likely iatrogenic. Incentive spirometry will be beneficial Will start the patient on hydroxyzine to be taken 3 times daily [id number]. QTc 387 Please note the above document was generated using voice recognition software. It may contain grammatical, syntax or spelling errors.Any formal questions or concerns about the content, text or information contained within the body of this dictation should be directly addressed to the provider for clarification. History of Present Illness Reason for Consultation: chronic cough, acute hypoxic resp failure Requesting Physician: Dr. 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 Patient reports that he had been extensively evaluated [facility] He states that he is treated with pantoprazole which has helped decrease his cough to a manageable state. He typically utilizes Tessalon Perles on an as-needed basis, but reports that for the last 4 to 5 days, this has not been providing relief. He states that he had a similar episode several years ago and had been evaluated without conclusive information as to the source of the cough. He reports no history of chronic pulmonary processes. He is a lifelong non-smoker. He does have a history of recurrent pneumonias, but none of these have been recent. He uses no inhalers on a daily basis or as a rescue form of inhaler. He reports a prior history of tuberculosis treated in the 1970s. No other occupational exposures noted. He does report a history of chronic rhinorrhea with postnasal drip. Patient is undergone sinus surgery several years ago as well. Today, he offers no complaints of fevers, chills, sequela of upper respiratory infections, productive cough, hemoptysis, chest pain, palpitations, pleuritic pain, dizziness, lightheadedness, or presyncope. Allergies Allergy/AdvReac Type Severity Reaction Status Date / Time mometasone furoate Allergy Intermediate HIVES/RASH Verified 08/22/23 17:30 niacin Allergy Intermediate FLUSHING Verified 08/22/23 17:29 AND ITCHING pregabalin Allergy Intermediate RASH & Verified 08/22/23 17:29 MOOD CHANGES morphine Allergy Unknown UNKNOWN ON Verified 08/22/23 17:29 GMG MED LIST atorvastatin [From Lipitor] AdvReac Intermediate NEURO Verified 08/22/23 17:29 COMPLICATIONS lisinopril AdvReac Intermediate COUGH Verified 08/22/23 17:29 vaccine adjuvant system, AdvReac Intermediate INFLUENZA-LIKE Verified 08/22/23 17:29 AS01B liposomal ILLNESS [From Shingrix (PF)] valsartan AdvReac Intermediate Cough Verified 08/22/23 17:29 varicella-zoster virus AdvReac Intermediate INFLUENZA-LIKE Verified 08/22/23 17:29 glycoprotein E, recombinant ILLNESS [From Shingrix (PF)] adhesive AdvReac Mild OPSITE-RASH Verified 08/22/23 17:29 Home Medications Medication Instructions Recorded Confirmed Type aspirin 81 mg tablet,delayed 81 mg PO DAILY 07/30/18 08/22/23 History release (Jimmie Low Dose Aspirin) carvedilol 25 mg tablet (Coreg) 12.5 mg PO BID 07/30/18 08/22/23 History pantoprazole 40 mg tablet,delayed 40 mg PO QAM 07/30/18 08/22/23 History release (Protonix) rosuvastatin 40 mg tablet (Crestor) 20 mg PO DAILY 07/30/18 08/22/23 History furosemide 20 mg tablet (Lasix) 20 mg PO 3XWK 09/22/20 08/22/23 History nitroglycerin 0.4 mg sublingual 0.4 mg sublingual UD PRN Chest Pain 09/22/20 08/22/23 History tablet (Nitrostat) multivitamin (Daily Multi-Vitamin 1 tab PO QAM 01/02/21 08/22/23 History tablet) apixaban 5 mg tablet (Eliquis) 5 mg PO BID 03/21/23 08/22/23 History benzonatate 100 mg capsule 100 - 200 mg PO TID PRN Cough 08/22/23 08/22/23 History cyanocobalamin (vitamin B-12) 1,000 mcg PO DAILY 08/22/23 08/22/23 History 1,000 mcg tablet (Vitamin B-12) Patient History Medical History Hx of basal cell carcinoma ear Lyme disease hx ~12/2020. no current issues. Sinus bradycardia History of blood clots JUNE 2020...PT REPORTS RECEIVED CHAYA AND CHAYA VACCINE ON JULY 10, 2020...2 WEEKS LATER BLOOD PRESSURE ELEVATED, ECHO DONE AND DX WITH BLOOD CLOT IN HEART...reason for plavix daily History of tuberculosis 1970'S - no current issues History of cough r/t gastric reflux Erythema nodosum BEEN TREATED IN PAST - no current issues Herniated disc LUMBAR AREA Osteoarthritis BPH (benign prostatic hyperplasia) Prediabetes Colon polyps PRE-CANCEROUS in 2020. 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 History of tooth extraction History of tonsillectomy History of endoscopic sinus surgery History of cholecystectomy lap choley History of heart artery stent TOTAL 4 STENTS PLACED 2003 [facility] TOTAL 2 STENTS 2009 IN [facility] History of cardiac cath 1996, 2003 (2 CARDIAC CATHS IN 2003) History of coronary artery bypass graft 2 VESSELS 1996 IN [place] Family History Aunt Family hx of colon cancer Family history of diabetes mellitus Grandmother Family history of diabetes mellitus Aunt Family hx of colon cancer Aunt Family hx of colon cancer Sister Family history of reaction to anesthesia "CAN'T REMEMBER" Social History Smoking Status: Never smoker Second Hand Exposure: No; Do You Dip or Chew Tobacco: No; Hx Alcohol Use: No Hx Substance Use: No Preferred Language: Guamanian Communication Ability: Effective Pilot 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 All else were negative. Physical Exam Physical Exam: VITAL SIGNS - Vital signs and nursing notes were reviewed. GENERAL - 78-year-old male appearing his stated age who is in no acute distress. Communicates well with provider and answers questions appropriately. SKIN - Without rashes or lesions. NOSE - Midline and without cyanosis. MOUTH/OROPHARYNX - Without perioral cyanosis. LUNGS - Chest wall evaluation demonstrates normal chest wall A:P diameter. Auscultation reveals diminished breath sounds at the bases without wheezes, rales, or rhonchi appreciated. CARDIAC - RRR with S1/S2. No murmur, rubs, or gallops appreciated. ABDOMEN - Abdominal inspection demonstrates an obese abdomen. BS normoactive all four quadrants. No tenderness, palpable masses, or ascites noted. EXTREMITIES - Nail clubbing no5 present. No peripheral cyanosis. Mild pretibial edema present. +3/5 radial palpated throughout. PSYCH - A&Ox3 and cooperates fully with examiner. Pt is very pleasant and interacts well with examiner. Results & Data Results & Data Vital Signs (Past 12 Hours) Vital Signs Temp Pulse Pulse Resp BP BP Pulse Ox 08/23/23 07:59 100 H 08/23/23 07:10 37.0 C 86 20 122/77 92 08/23/23 04:00 146/66 H 08/23/23 03:00 116/68 88 L 08/23/23 02:00 138/72 91 08/23/23 01:00 126/80 95 08/23/23 00:01 162/98 H 08/23/23 00:01 96 08/23/23 00:00 96 H 95 08/22/23 23:30 97 08/22/23 23:01 97 08/22/23 23:01 169/96 H 08/22/23 23:00 96 08/22/23 22:30 96 08/22/23 22:02 91 H 22 91 08/22/23 22:02 183/94 H 08/22/23 22:02 183/94 H 08/22/23 22:01 94 H 19 89 L 08/22/23 21:55 08/22/23 21:55 37.3 C 91 H 24 150/90 H 93 O2 Del Method O2 Flow Rate 08/23/23 07:59 08/23/23 07:10 Nasal Cannula 2 08/23/23 04:00 08/23/23 03:00 08/23/23 02:00 08/23/23 01:00 08/23/23 00:01 08/23/23 00:01 08/23/23 00:00 08/22/23 23:30 08/22/23 23:01 08/22/23 23:01 08/22/23 23:00 08/22/23 22:30 08/22/23 22:02 08/22/23 22:02 08/22/23 22:02 08/22/23 22:01 08/22/23 21:55 Nasal Cannula 2 08/22/23 21:55 Nasal Cannula 2 PG Care Time/CCT Total # of Minutes Spent Total Time Spent with Patient: Total time spent is greater than 50% in coordination of care (as documented) at patient's floor/unit and/or counseling patient: Coding Level of Care Code 44179 INT INP/OBS CARE 3/75MIN Diagnoses Chronic cough R05.3 Hypoxia R09.02 Chronic rhinitis J31.0
--- OUTSIDE RECORDS SUMMARY | 2023-08-23 10:52 | External Medical Summary | Summary of Care ---
Author Name Unknown Organization [facility] Address [address] [place] [address] Phone [phone] Care Team Providers Care Tub Mender Name Role Phone Jairon Park MD Primary Care Pr ovider Reason for Visit * Reason Comments Defibrillator Clinic Advisory Encounter Details Date Type Department Care Team (Latest Contact Info) Description 08/04/2023 10:30 AM EDT Cardiac Studies Cardiology, [facility] [address] [facility] [place] [address] [place], [facility] [address] [facility] [address] SSS (sick sinus syndrome) ([facility])*; Automatic implantable cardioverter-defibri llator in situ; Chronic HFrEF (heart failure with reduced ejection fraction) ([facility]) Allergies Active Allergy Reactions Criticality Noted Date Comments Adhesive Tape Rash Low 05/08/2009 Opsite dressing Mometasone Furoate Hives 02/14/2011 Atorvastatin Neuro complications (Please comment) 03/19/2015 Lisinopril Cough 05/08/2009 Pregabalin Rash 02/03/2010 Mood changes as well Mometasone Furoate Rash 03/03/2011 Morphine Sulfate-Nacl Unknown Low 05/08/2009 Niacin 08/15/2013 Flushing and itching Zoster Vac Recomb Adjuvanted 08/06/2021 Other reaction(s): Influenza-like illness Valsartan Cough 12/14/2012 documented as of this encounter (statuses as of 08/04/2023) Medications Medication Sig Dispensed Refills Start Date End Date Status MULTIVITAMINS PO TABS Daily 0 Active NITROGLYCERIN 0.4 MG SL SUBLIndications:Unst able angina (HCC) As needed for chest discomfort 10 1 05/09/2009 Active ASPIRIN 81 MG PO CHEWIndications:Othe r chest pain 1 Tab Oral Daily 30 0 05/09/2009 Active BENZONATATE 100 MG PO CAPSIndications:Coug h Swallow 1 or 2 pills three times a day as needed for cough. Do not cut, crush, or chew. 50 Cap 3 02/18/2014 Active CRESTOR 40 MG TabletIndications:Dy slipidemia, goal LDL below 70 Takes 1/2 tab per day 0 06/01/2015 Active Furosemide 20 MG Oral Tablet (Lasix) One tablet three mornings per week on Mondays,Wednesdays, and Fridays 60 Tab 3 07/17/2020 Active Pantoprazole Sodium 20 MG Oral Tablet Delayed Release (Protonix) Take by mouth 20 mg daily . 0 08/04/2020 Active B-12 1000 MCG Oral Capsule Take by mouth 1,000 mcg in the morning. 0 Active Iron 325 (65 Fe) MG Oral Tablet Take by mouth every other day . 0 Active Carvedilol 25 MG Oral Tablet (Coreg) 0.5 Tablets 2 times a day with morning and evening meals . 0 01/26/2022 Active Apixaban 5 MG Oral Tablet (Eliquis)Indications :LV (left ventricular) mural thrombus Take 1 Tablet by mouth in the morning and 1 Tablet before bedtime. 0 03/20/2023 Active documented as of this encounter (statuses as of 08/04/2023) Active Problems Problem Noted Date Diagnosed Date Type 2 diabetes mellitus with peripheral neuropa thy 12/07/2018 Well controlled type 2 diabe estuardo mellitus with peripheral neuropathy 06/18/2018 BPH with obstruction/lower urinary tract symptom s 05/04/2018 HTN, goal below 140/90 07/06/2015 Overview: Per HTN Protocol #27. Automatic implantable cardioverter-defibrillator in situ 02/06/2013 Anticoagulation management encounter 12/27/2012 intermediate card tender current use of anticoagulant therapy 0 12/27/2012 Overview: ICD-10 update of inactive term LV (left ventricular) mural thrombus 12/26/2012 IVONE inhibitor intolerance 12/14/2012 ARB intolerance 12/14/2012 Ischemic cardiomyopathy 06/01/2011 S/P angioplasty with stent 05/03/2011 Overview: YARI to RCA. S/P CABG x 3 05/03/2011 Overview: 1997- WEISS to LAD, SVG to diagonal #1, SVG to diagonal #2 Lipoma 06/29/2009 Overview: ICD-10 update of inactive term Dyslipidemia, goal LDL below 70 06/10/2009 High triglycerides 06/10/2009 Type 2 diabetes mellitus wit h hemoglobin A1c goal of less than 7.0% 05/20/2009 Overview: ICD-10 update of inactive term Chronic coronary artery disease 05/08/2009 Overview: He will likely require life long aspirin and Plavix as long as there is no bleeding complications. Per cards note Pernicious anemia 05/08/2009 Diverticulosis of colon 05/08/2009 Hemorrhoids 05/08/2009 Neuropathy 05/08/2009 S/P primary angioplasty with coronary stent 11/2009 documented as of this encounter (statuses as of 08/04/2023) Resolved Problems Problem Noted Date Diagnosed Date Resolved Date Subacute maxillary sinusitis 11/03/2017 11/03/2017 Subacute frontal sinusitis 11/03/2017 0 06/18/2018 Fatigue 11/29/2013 06/18/2018 Ischemic cardiomyopathy 01/31/201301/30 Claustrophobia 12/10/2012 10/04/2019 HTN, GOAL BELOW 140/80 12/19/201108/05 Overview: Per HTN Protocol #27. Cough 08/30/2011 06/18/2018 SOB (shortness of breath) 04/12/2011 CORON ATHEROSCL [place] CORON VESSEL 03/10/2010 02/15/2012 Bypass graft stenosis 06/10/20092017 Joint pain, hip 05/09/2009 06/18/2018 Carcinoid syndrome 05/08/2009 10/03/201 8 HTN, goal below 130/80 05/08/200912/21 EXAMINATION OF PARTICIPANT I N CLINICAL TRIAL-Genomics 05/08/2009 08/14/2009 Overview: Renamed Per Clinical Trials Billing Project. Study Titile: Genomic Markers for Patients with Cardiovascular Disease Project #[id number] PI: Johanne Santana MD Please call [phone] with study related questions GENOMICS CARDIO RESEARCH OTHER*[id number] 05/08/2009 06/07/2016 Overview: Renamed Per Clinical Trials Billing Project. 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 documented as of this encounter (statuses as of 08/04/2023) Immunizations Name Administration Dates Next Due Covid-19 Ad26, Single Dose (Donya/J&J) 07/10/2020 H1N1 2009 Influenza, IM 06/04/2009 Pneumococcal Conjugate Vacc, 13 Valent (Prevnar) 08/02/2017,06/29/2017 Pneumococcal Polysaccharide PPV23 (Pneumovax) 05/08/2013,05/01/2002 Season Influenza, Quad, PF, Adjuvanted, 65+ Yrs, IM (FLUAD) 02/01/2020 Seasonal Influenza, Quadriva lent Hd, 65+ Yrs 01/25/2022,02/01/2021,02/01/2020 Seasonal Influenza, Quadriva lent, No Preserve, IM 01/08/2018 Seasonal Influenza, Split, I IV3, With Preserve, Inj 01/24/2015,01/01/2014,01/09/2013,01/15,01/14/2011,02/13/2010,01/29/2009 TDAP (age 11 and older)(Adacel) 05/20/2009 Varicella Zoster Vaccine (Adult) 07/30/2006 Zoster Vaccine Recombinant (Shingrix) 10/08/2020 documented as of this encounter Social History Tobacco Use Types Packs/Day Years Used Date Smoking Tobacco: Never Smokeless Tobacco: Never Alcohol Use Standard Drinks/Week Comments No 0 (1 standard drink = 0.6 oz pur e alcohol) PHQ-2 Answer Date Recorded PHQ Adult Total Score 8 10/08/2020 Hunger Vital Sign Answer Date Recorded Within the past 12 months, y ou worried that your food would run out before you got the money to buy more. Never true 10/09/19 21 Within the past 12 months, t he food you bought just didn't last and you didn't have money to get more. Never true 10/08/2020 Sex and Gender Information Value Date Recorded Sex Assigned at Not on file Gender Identity Not on file Sexual Orientation Not on file Job Start Date Occupation Industry Not on file Not on file Not on file documented as of this encounter Progress Notes * Kimberly Rene LPN - 08/04/2023 10:52 AM EDT Patient and implanted device were evaluated today in the [facility]. Providers please see scanned report in the Scans tab. Per [employer] device advisory: Programed all HV therapy pathways B>AX in all therapy zones . Left pectoral device pocket is healthy without erythema, swelling, pain, or drainage. Thoracic impedance monitoring: Fluid index reveals a baseline thoracic impedance indicating normal fluid status. documented in this encounter Plan of Treatment Scheduled Orders Name Type Priority Associated Diagnoses Orde r Schedule DUAL-LEAD DEFIBRILLATOR + REPROGRAM Procedures Routine SSS (sick sinus syndrome) ([facility]) Automatic implantable cardioverter-defibrill ator in situ Chronic HFrEF (heart failure with reduced ejection fraction) ([facility]) Ordered: 08/04/2023 Scheduled Procedures Name Priority Associated Diagnoses Date/Ti me ESOPHAGOGASTRODUODENOSCOPY ( EGD), FLEXIBLE, TRANSORAL, DIAGNOSTIC Recall Malignant carcinoid tumor of stomach (HCC) COLONOSCOPY FLEXIBLE PROXIMAL DIAGNOSTIC Recall History of colonic polyps Health Maintenance Due Date Last Done Comments DTaP,Tdap,and Td Vaccines (2 - Td or Tdap) 05/20/2019 05/20/2009 Diabetic Eye Exam 11/06/2020 11/07/2019, , 05/17/2011, Additional history exists Zoster Vaccines (3 of 3) 12/03/2020 10/08/2020, 04/0 05/2006 Diabetic Foot Exam 04/06/2021 04/06/2020, 0 12/17/2018, 10/24/2017, Additional history exists Depression Screening 10/08/2021 10/08/2020 Albumin/Creatinine Ratio 10/09/2021 021, 11/07/2019, 07/26/2019, Additional history exists HbA1c 11/10/2022 05/13/2022, 09/29, 07/28/2020, Additional history exists Influenza Vaccine (FLU shot) (Season Ended) 2023 01/25/2022, 02/01/2021, 02/01/2020, Additional history exists GFR 02/14/2024 02/13/2023, 05/01, 11/29/2021, Additional history exists COLONOSCOPY-EVERY 5 YRS AGES 18-100 03/30/2028 03/30/2023, 12/24/2020, 08/09/2018, Additional history exists COVID-19 Vaccine Completed 03/03/2023, 07/10/2020 COLONOSCOPY-EVERY 2 YRS AGES 18-100 Discontinued 03/30/2023, 12/24/2020, 08/09/2018, Additional history exists Pneumococcal Vaccine: 65+ Years Completed 07/24/2023, 08/02/2017, 06/29/2017, Additional history exists GARDASIL-HPV IMMUNIZATION SERIES Aged Out No longer eligible based on patient's age to complete this topic Hepatitis B Aged Out No longer eligi ble based on patient's age to complete this topic MENINGOCOCCAL (MENACTRA/MENVEO) Aged Out No longer eligible based on patient's age to complete this topic documented as of this encounter Medical Devices Not on filedocumented as of this encounter Visit Diagnoses Diagnosis SSS (sick sinus syndrome) (HCC)- Primary Sinoatrial node dysfunction Automatic implantable cardioverter-defibrillator in situ Chronic HFrEF (heart failure with reduced ejection fraction) (HCC) documented in this encounter Advance Directives Latest Code Status on File Code Status Date Activated Date Inactivated Comments Full Code 01/30/2013 4:03 PM 01/31/2013 2:01 PM This order reflects the patients wishes and were consensually agreed upon. Question Answer Comments Discussion of Advance Directives occurred with: Not Discussed Does the patient have a Living Will? No Does the patient have Health Care Power of Live Truck Operator? No Code Status History Code Status Date Activated Date Inactivated Comments Full Code 05/03/2011 3:27 PM 05/04/2011 1:12 AM This or micha reflects the patients wishes and were consensually agreed upon. Question Answer Comments Discussion of Advance Directives occurred with: Not Discussed Does the patient have a Living Will? No Does the patient have Health Care Power of Live Truck Operator? No Full Code 05/08/2009 2:51 PM 05/09/2009 6:50 PM This or micha reflects the patients wishes and were consensually agreed upon. Question Answer Comments Discussion of Advance Directives occurred with: Not Discussed Does the patient have a Living Will? No Does the patient have Health Care Power of Live Truck Operator? No Full Code 05/08/2009 2:51 PM 05/08/2009 2:51 PM This or micha reflects the patients wishes and were consensually agreed upon. Question Answer Comments Discussion of Advance Directives occurred with: Not Discussed Does the patient have a Living Will? No Does the patient have Health Care Power of Live Truck Operator? No Care Teams Tub Mender Relationship Specialty Start Date End Date Jairon Park MD [address] [place] [address] PCP - General Family Medicine 08/18/20 documented as of this encounter
--- OUTSIDE RECORDS SUMMARY | 2023-08-23 10:52 | External Medical Summary | Summary of Care ---
Author Name Unknown Organization [facility] Address [address] [place] [address] Phone [phone] Care Team Providers Care Vice President Of Instruction Name Role Phone Jairon Park MD Primary Care Pr ovider Encounter Details Date Type Department Care Team (Late st Contact Info) Description 05/08/2023 Result Scan Unspecified Department Arun Reeder, DO [address] [place], [place] [id number] <No scans attached> Allergies Active Allergy Reactions Criticality Noted Date [...] as of this encounter (statuses as of 05/08/2023) Medications Medication Sig Dispensed Refills Start Date [...] as of this encounter (statuses as of 05/08/2023) Active Problems Problem Noted Date Diagnosed Date Type 2 diabetes mellitus with peripheral neuropa thy 12/07/2018 Well controlled type 2 diabe estuardo mellitus with peripheral neuropathy 06/18/2018 BPH with obstruction/lower urinary tract symptom s 05/04/2018 HTN, goal below 140/90 07/06/2015 Overview: Per HTN Protocol #27. Automatic implantable cardioverter-defibrillator in situ 02/06/2013 Anticoagulation management encounter 12/27/2012 drafter geophysical current use of anticoagulant therapy 0 12/27/2012 [...] as of this encounter (statuses as of 05/08/2023) Resolved Problems Problem Noted Date Diagnosed Date Resolved Date Subacute maxillary sinusitis 11/03/2017 11/03/2017 Subacute frontal sinusitis 11/03/2017 0 06/18/2018 Fatigue 11/29/2013 06/18/2018 Ischemic cardiomyopathy 01/31/201301/30 Claustrophobia 12/10/2012 10/04/2019 HTN, GOAL BELOW 140/80 12/19/201108/05 Overview: Per HTN Protocol #27. Cough 08/30/2011 06/18/2018 SOB (shortness of breath) 04/12/2011 CORON ATHEROSCL [place] CORON VESSEL 03/10/2010 02/15/2012 Bypass graft stenosis 06/10/20092017 Joint pain, hip 05/09/2009 06/18/2018 Carcinoid syndrome 05/08/2009 8 HTN, goal below 130/80 05/08/200912/21 EXAMINATION OF PARTICIPANT I N CLINICAL TRIAL-Genomics 05/08/2009 08/14/2009 Overview: Renamed Per Clinical Trials Billing Project. Study Titile: Genomic Markers for Patients with Cardiovascular Disease Project #[id number] PI: Johanne Santana MD Please call [phone] with study related questions GENOMICS CARDIO RESEARCH OTHER*[id number] 05/08/2009 06/07/2016 Overview: Renamed Per Clinical Trials Billing Project. 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 documented as of this encounter (statuses as of 05/08/2023) Immunizations Name Administration Dates Next Due Covid-19 [...] on file documented as of this encounter Plan of Treatment Upcoming Encounters Date Type Department Care Team (Late st Contact Info) Description 08/04/2023 10:30 AM EDT Cardiac Studies Cardiology, [facility] [address] [place] [address] [place] [facility] [address] [place] [address] 08/15/2023 2:20 PM EDT Office Visit Endocrinology, [place] [address] [place], [place] [id number] Olivier Romero MD [address] [place] [address] Scheduled Procedures Name Priority Associated Diagnoses Date/Ti me ESOPHAGOGASTRODUODENOSCOPY ( EGD), FLEXIBLE, TRANSORAL, DIAGNOSTIC Recall Malignant carcinoid tumor of stomach (HCC) COLONOSCOPY FLEXIBLE PROXIMAL DIAGNOSTIC Recall History of colonic polyps Health Maintenance Due Date Last Done Comments Hepatitis B (1 of 3 - Risk 3-dose series) 2006 DTaP,Tdap,and Td Vaccines (2 - Td or Tdap) 05/20/2019 05/20/2009 Diabetic Eye Exam 11/06/2020 11/07/2019, , 05/17/2011, Additional history exists Zoster Vaccines (3 of 3) 12/03/2020 10/08/2020, 04/05/2006 Diabetic Foot Exam 04/06/2021 04/06/2020, 0 12/17/2018, 10/24/2017, Additional history exists Depression Screening 10/08/2021 10/08/2020 Albumin/Creatinine Ratio 10/09/20212 021, 11/07/2019, 07/26/2019, Additional history exists HbA1c 11/10/2022 05/13/2022, 09/29, 07/28/2020, Additional history exists Influenza Vaccine (FLU shot) (#1) 2022 01/25/2022, 02/01/2021, 02/01/2020, Additional history exists GFR 02/14/2024 02/13/2023, 05/01, 11/29/2021, Additional history exists COLONOSCOPY-EVERY 5 YRS AGES 18-100 03/30/2028 03/30/2023, 12/24/2020, 08/09/2018, Additional history exists Pneumococcal Vaccine: 65+ Years Completed 08/02/2017, 06/29/2017, 05/08/2013, Additional history exists COVID-19 Vaccine Completed 03/03/2023, 07/10/2020 COLONOSCOPY-EVERY 2 YRS AGES 18-100 Discontinued 03/30/2023, 12/24/2020, 08/09/2018, Additional history exists GARDASIL-HPV IMMUNIZATION SERIES Aged Out No longer eligible based on patient's age to complete this topic MENINGOCOCCAL (MENACTRA/MENVEO) Aged Out No longer eligible based on patient's age to complete this topic documented as of this encounter Medical Devices Not on filedocumented as of this encounter Procedures Procedure Name Priority Date/Time Associated Diagnosis Comments CARDIOLOGY SCANNED RESULT 05/08/2023 documented in this encounter Results * CARDIOLOGY SCANNED RESULT (05/08/2023) 05/08/2023 Arun Reeder DO OTHER documented in this encounter Advance Directives Latest [...] the patient have Health Care Power of Portal Architect? No Code Status History Code Status Date Activated Date Inactivated Comments Full Code 05/03/2011 3:27 PM 05/04/2011 1:12 AM This or micha reflects the patients wishes and were consensually agreed upon. Question Answer Comments Discussion of Advance Directives occurred with: Not Discussed Does the patient have a Living Will? No Does the patient have Health Care Power of Portal Architect? No Full Code 05/08/2009 2:51 PM 05/09/2009 6:50 PM This or micha reflects the patients wishes and were consensually agreed upon. Question Answer Comments Discussion of Advance Directives occurred with: Not Discussed Does the patient have a Living Will? No Does the patient have Health Care Power of Portal Architect? No Full Code 05/08/2009 2:51 PM 05/08/2009 2:51 PM This or micha reflects the patients wishes and were consensually agreed upon. Question Answer Comments Discussion of Advance Directives occurred with: Not Discussed Does the patient have a Living Will? No Does the patient have Health Care Power of Portal Architect? No Care Teams Vice President Of Instruction Relationship Specialty Start Date End Date Jairon Park MD [address] [place] [address] PCP - General Family Medicine 08/18/20 documented as of this encounter
--- OUTSIDE RECORDS SUMMARY | 2023-08-23 10:52 | External Medical Summary | Summary of Care ---
Author Name Unknown Organization [facility] Address [address] [place] [address] Phone [phone] Care Team Providers Care Logistics Assistant Name Role Phone Jairon Park MD Primary Care Pr ovider Reason for Visit * Reason Onset Date Comments Encounter Created in Error 04/21/2023 * Evaluate & Treat - Unlimited Visits (Within 30 days (routine)) - Authorized Specialty Diagnoses / Procedures Referred By Ahmet franz Referred To Contact Gastroenterology Diagnoses History of colon polyps Procedures COLONOSCOPY Jairon Park MD [address] [place] [address] Referral ID Status Reason Start Date Expiration Date Visits Requested Visits Authorized [id number] Authorized Specialty Services Required 11/24/2022 05/23/[phone] Encounter Details Date Type Department Care Team (Latest Contact Info) Description 03/30/2023 8:30 AM EST Procedure Only Endoscopy, [facility] [address] [place] [address] Cedric Farias MD [address] [place] [address] Encounter created in error Allergies Active Allergy Reactions Criticality Noted Date [...] as of this encounter (statuses as of 04/21/2023) Medications Medication Sig Dispensed Refills Start Date [...] as of this encounter (statuses as of 04/21/2023) Active Problems Problem Noted Date Diagnosed Date Type 2 diabetes mellitus with peripheral neuropa thy 12/07/2018 Well controlled type 2 diabe estuardo mellitus with peripheral neuropathy 06/18/2018 BPH with obstruction/lower urinary tract symptom s 05/04/2018 HTN, goal below 140/90 07/06/2015 Overview: Per HTN Protocol #27. Automatic implantable cardioverter-defibrillator in situ 02/06/2013 Anticoagulation management encounter 12/27/2012 intermediate project manager current use of anticoagulant therapy 0 12/27/2012 [...] as of this encounter (statuses as of 04/21/2023) Resolved Problems Problem Noted Date Diagnosed Date Resolved Date Subacute maxillary sinusitis 11/03/2017 11/03/2017 Subacute frontal sinusitis 11/03/2017 0 06/18/2018 Fatigue 11/29/2013 06/18/2018 Ischemic cardiomyopathy 01/31/201301/30 Claustrophobia 12/10/2012 10/04/2019 HTN, GOAL BELOW 140/80 12/19/201108/05 Overview: Per HTN Protocol #27. Cough 08/30/2011 06/18/2018 SOB (shortness of breath) 04/12/2011 CORON ATHEROSCL [place] CORON VESSEL 03/10/2010 02/15/2012 Bypass graft stenosis 06/10/20092017 Joint pain, hip 05/09/2009 06/18/2018 Carcinoid syndrome 05/08/2009 8 HTN, goal below 130/80 05/08/200912/21 EXAMINATION OF PARTICIPANT I N CLINICAL TRIAL-Genomics 05/08/2009 08/14/2009 Overview: Renamed Per Clinical Trials Billing Project. Study Titile: Genomic Markers for Patients with Cardiovascular Disease Project #[id number] PI: Johanne Santana MD Please call [phone] with study related questions GENOMICS CARDIO RESEARCH OTHER*[id number] 05/08/2009 06/07/2016 Overview: Renamed Per Clinical Trials Billing Project. 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 04/21/2023, 12:26 PM, Cedric Farias MD documented in this encounter Plan of Treatment Upcoming Encounters Date Type Department Care Team (Late st Contact Info) Description 08/04/2023 10:30 AM EDT Cardiac Studies Cardiology, [facility] [address] [facility] [place] [address] [facility] [address] [facility] [place] [address] 08/15/2023 2:20 PM EDT Office Visit Endocrinology, [place] [address] [place], [place] [phone] Olivier Romero MD [address] [place] [address] Scheduled Procedures Name Priority Associated Diagnoses Date/Ti [...] Zoster Vaccines (3 of 3) 12/03/2020 10/08/2020, 05/2006 Diabetic Foot Exam 04/06/2021 04/06/2020, 0 [...] as of this encounter Visit Diagnoses Diagnosis Encounter Created In Error- Primary documented in this encounter Advance Directives Latest [...] the patient have Health Care Power of Assistant To The President? No Code Status History Code Status Date Activated Date Inactivated Comments Full Code 05/03/2011 3:27 PM 05/04/2011 1:12 AM This or micha reflects the patients wishes and were consensually agreed upon. Question Answer Comments Discussion of Advance Directives occurred with: Not Discussed Does the patient have a Living Will? No Does the patient have Health Care Power of Assistant To The President? No Full Code 05/08/2009 2:51 PM 05/09/2009 6:50 PM This or micha reflects the patients wishes and were consensually agreed upon. Question Answer Comments Discussion of Advance Directives occurred with: Not Discussed Does the patient have a Living Will? No Does the patient have Health Care Power of Assistant To The President? No Full Code 05/08/2009 2:51 PM 05/08/2009 2:51 PM This or micha reflects the patients wishes and were consensually agreed upon. Question Answer Comments Discussion of Advance Directives occurred with: Not Discussed Does the patient have a Living Will? No Does the patient have Health Care Power of Assistant To The President? No Care Teams Logistics Assistant Relationship Specialty Start Date End Date Jairon Park MD [address] [place] [address] PCP - General Family Medicine 08/18/20 documented as of this encounter
--- OUTSIDE RECORDS SUMMARY | 2023-08-23 10:52 | External Medical Summary | Summary of Care ---
Author Name Unknown Organization [facility] Address [address] [facility] [place] [address] Phone [phone] Care Team Providers Care Brass Molder Name Role Phone Jairon Park MD Primary Care Pr ovider Reason for Visit * Reason Comments Defibrillator Clinic Advisory Encounter Details Date Type Department Care Team (Latest Contact Info) Description 08/04/2023 10:30 AM EDT Cardiac Studies Cardiology, [facility] [address] [facility] [address] [place], Pacer Clinic [facility] [address] [facility] [address] SSS (sick sinus syndrome) ([facility])*; Automatic implantable cardioverter-defibri llator in situ; Chronic HFrEF (heart failure with reduced ejection fraction) ([facility]) Allergies Active Allergy Reactions Criticality Noted Date [...] in situ 02/06/2013 Anticoagulation management encounter 12/27/2012 meterman current use of anticoagulant therapy 0 12/27/2012 [...] SOB (shortness of breath) 04/12/2011 CORON ATHEROSCL [place] CORON VESSEL 03/10/2010 02/15/2012 Bypass graft stenosis 06/10/20092017 Joint pain, hip 05/09/2009 06/18/2018 Carcinoid syndrome 05/08/2009 10/03/201 8 HTN, goal below 130/80 05/08/200912/21 EXAMINATION OF PARTICIPANT I N CLINICAL TRIAL-Genomics 05/08/2009 08/14/2009 Overview: Renamed Per Clinical Trials Billing Project. Study Titile: Genomic Markers for Patients with Cardiovascular Disease Project #[id number] PI: Johanne Santana MD Please call [phone] with study related questions GENOMICS CARDIO RESEARCH OTHER*[id number] 05/08/2009 06/07/2016 Overview: Renamed Per Clinical Trials Billing Project. Study Titile: Genomic Markers for Patients with Cardiovascular Disease Project #[id number] PI: Johanne Santana MD Please call [phone] with study related questions Tuberculosis of bones [...] REPROGRAM Procedures Routine SSS (sick sinus syndrome) ([facility]) Automatic implantable cardioverter-defibrill ator in situ Chronic HFrEF (heart failure with reduced ejection fraction) ([facility]) Ordered: 08/04/2023 Scheduled Procedures Name Priority Associated [...] the patient have Health Care Power of Maintenance Specialist? No Code Status History Code Status Date Activated Date Inactivated Comments Full Code 05/03/2011 3:27 PM 05/04/2011 1:12 AM This or micha reflects the patients wishes and were consensually agreed upon. Question Answer Comments Discussion of Advance Directives occurred with: Not Discussed Does the patient have a Living Will? No Does the patient have Health Care Power of Maintenance Specialist? No Full Code 05/08/2009 2:51 PM 05/09/2009 6:50 PM This or micha reflects the patients wishes and were consensually agreed upon. Question Answer Comments Discussion of Advance Directives occurred with: Not Discussed Does the patient have a Living Will? No Does the patient have Health Care Power of Maintenance Specialist? No Full Code 05/08/2009 2:51 PM 05/08/2009 2:51 PM This or micha reflects the patients wishes and were consensually agreed upon. Question Answer Comments Discussion of Advance Directives occurred with: Not Discussed Does the patient have a Living Will? No Does the patient have Health Care Power of Maintenance Specialist? No Care Teams Brass Molder Relationship Specialty Start Date End Date Jairon Park MD [address] [place] [address] PCP - General Family Medicine 08/18/20 documented as of this encounter
--- OUTSIDE RECORDS SUMMARY | 2023-08-23 10:52 | External Medical Summary | Summary of Care ---
Author Name Unknown Organization [facility] Address [address] [facility] [place] [address] Phone [phone] Care Team Providers Care Currency Counter Name Role Phone Jairon Park MD Primary Care Pr ovider Encounter Details Date Type Department Care Team (Late st Contact Info) Description 08/08/2023 Result Scan Unspecified Department Arun Reeder, DO [address] [place], [place] [id number] <No scans attached> Allergies Active Allergy Reactions [...] as of this encounter (statuses as of 08/08/2023) Medications Medication Sig Dispensed Refills Start Date [...] as of this encounter (statuses as of 08/08/2023) Active Problems Problem Noted Date Diagnosed Date Type 2 diabetes mellitus with peripheral neuropa thy 12/07/2018 Well controlled type 2 diabe estuardo mellitus with peripheral neuropathy 06/18/2018 BPH with obstruction/lower urinary tract symptom s 05/04/2018 HTN, goal below 140/90 07/06/2015 Overview: Per HTN Protocol #27. Automatic implantable cardioverter-defibrillator in situ 02/06/2013 Anticoagulation management encounter 12/27/2012 [facility] current use of anticoagulant therapy 0 12/27/2012 [...] as of this encounter (statuses as of 08/08/2023) Resolved Problems Problem Noted Date Diagnosed Date Resolved Date Subacute maxillary sinusitis 11/03/2017 11/03/2017 Subacute frontal sinusitis 11/03/2017 0 06/18/2018 Fatigue 11/29/2013 06/18/2018 Ischemic cardiomyopathy 01/31/201301/30 Claustrophobia 12/10/2012 10/04/2019 HTN, GOAL BELOW 140/80 12/19/201108/05 Overview: Per HTN Protocol #27. Cough 08/30/2011 06/18/2018 SOB (shortness of breath) 04/12/2011 CORON ATHEROSCL [place] CORON VESSEL 03/10/2010 02/15/2012 Bypass graft stenosis 06/10/20092017 Joint pain, hip 05/09/2009 06/18/2018 Carcinoid syndrome 05/08/2009 8 HTN, goal below 130/80 05/08/200912/21 EXAMINATION OF PARTICIPANT I N CLINICAL TRIAL-Genomics 05/08/2009 08/14/2009 Overview: Renamed Per Clinical Trials Billing Project. Study Titile: Genomic Markers for Patients with Cardiovascular Disease Project #[id number] PI: Johanne Santana MD Please call [phone] with study related questions GENOMICS CARDIO RESEARCH OTHER*[id number] 05/08/2009 06/07/2016 Overview: Renamed Per Clinical Trials Billing Project. 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 documented as of this encounter (statuses as of 08/08/2023) Immunizations Name Administration Dates Next Due Covid-19 [...] as of this encounter Plan of Treatment Scheduled Procedures Name Priority Associated Diagnoses Date/Ti [...] Zoster Vaccines (3 of 3) 12/03/2020 10/08/2020, 0405/2006 Diabetic Foot Exam 04/06/2021 04/06/2020, 0 12/17/2018, [...] Date/Time Associated Diagnosis Comments CARDIOLOGY SCANNED RESULT 08/08/2023 documented in this encounter Results * CARDIOLOGY SCANNED RESULT (08/08/2023) 08/08/2023 Arun Reeder DO OTHER documented in this [...] the patient have Health Care Power of Weekday Babysitter? No Code Status History Code Status Date Activated Date Inactivated Comments Full Code 05/03/2011 3:27 PM 05/04/2011 1:12 AM This or micha reflects the patients wishes and were consensually agreed upon. Question Answer Comments Discussion of Advance Directives occurred with: Not Discussed Does the patient have a Living Will? No Does the patient have Health Care Power of Weekday Babysitter? No Full Code 05/08/2009 2:51 PM 05/09/2009 6:50 PM This or micha reflects the patients wishes and were consensually agreed upon. Question Answer Comments Discussion of Advance Directives occurred with: Not Discussed Does the patient have a Living Will? No Does the patient have Health Care Power of Weekday Babysitter? No Full Code 05/08/2009 2:51 PM 05/08/2009 2:51 PM This or micha reflects the patients wishes and were consensually agreed upon. Question Answer Comments Discussion of Advance Directives occurred with: Not Discussed Does the patient have a Living Will? No Does the patient have Health Care Power of Weekday Babysitter? No Care Teams Currency Counter Relationship Specialty Start Date End Date Jairon Park MD [address] [place] [address] PCP - General Family Medicine 08/18/20 documented as of this encounter
--- NOTE | 2023-08-23 10:54 | CT Scan Report ---
CT OF THE CHEST WITHOUT IV CONTRAST CLINICAL HISTORY: Chronic cough, RIGHT sided hemidiaphragm. COMPARISON STUDY: Chest radiographs April 07, 2021 and August 22, 2023. CT DOSE: 1491.42 mGy.cm TECHNIQUE: Axial images of the chest were obtained without IV contrast. Images were reviewed in the axial, sagittal, and coronal planes. IV contrast was not administered for this examination. Automat ed exposure control was utilized for the study. A dose lowering technique was utilized adhering to t he principles of ALARA. FINDINGS: There are median sternotomy wires and a left subclavian pacer. No enlarged axillary, media stinal or hilar lymph nodes are present. The heart is moderately enlarged. Moderate coronary artery c alcification is present. There are median sternotomy wires and postoperative findings from bypass gra fting. Dilatation of the central pulmonary arteries is noted. Right pulmonary artery measures 4 cm in caliber. There is no pneumothorax or pleural effusion. Central airways are patent. Moderate elevatio n of the right hemidiaphragm is unchanged since chest radiograph of April 07, 2021. Right lower lob e volume loss with subpleural opacity represents atelectasis. There is also segmental right middle lo be atelectasis. No consolidation is identified to suggest pneumonia. Left lung densities represent at electasis. There is no honeycombing. There is no bronchiectasis. There are minimal secretions within the airways. No acute fractures within the bony thorax. The gallbladder surgically absent. IMPRESSION: 1. No acute intrathoracic findings. 2. Stable moderate elevation of the right hemidiaphragm since chest radiograph of April 07, 2021. R ight middle and right lower lobe airspace opacities with right lower lobe volume loss represent atele ctasis. 3. Dilatation of the central pulmonary arteries which raises the possibility of pulmonary arterial hy pertension. 4. Moderate cardiomegaly and moderate coronary artery calcification. ACT 112: Negative or not required by law. Electronically signed by: Jeffery Patterson M.D. 08/23/2023 10:52 AM
--- NOTE | 2023-08-23 12:53 | CT Scan Report ---
SINUS CT HISTORY: Cough with headache. Chronic cough, post nasal gtt TECHNIQUE: Multiaxial CT images of the paranasal sinuses were performed and reformatted in the larkin l plane without the use of contrast. A dose lowering technique was utilized adhering to the principl es of CAROLE. COMPARISON: Head CT 01/23/2009. FINDINGS: Unremarkable soft tissues. Prior bilateral lens repair. Streak artifact from dental amalgam hardware. No acute calvarial or facial bone fracture. Mastoid air cells and middle ear cavities are generally clear. Mild mucosal thickening of the inferior frontal sinuses with partial opacification of the frontal eth moidal recesses. Prior partial ethmoidectomy bilaterally with [id number] mucosal thickening of the residual ethmoid air cells. Bilateral maxillary antrostomy with mild mucosal thickening of the ma xillary sinuses. Mild mucosal thickening of the sphenoid sinuses with partial opacification of the sp henoethmoidal recesses. Mild mucosal thickening of the nasal turbinates with prior resection of the m iddle nasal turbinates. Normal bre lexi. No large Toni cell. Patent nasopharynx. IMPRESSION: 1. Postoperative changes of the paranasal sinuses as above with [id number] mucosal thickening. 2. Partial opacification of the sinus outflow tracts. ACT 112: Negative or not required by law. Dictated: 08/23/2023 11:26 AM Transcribed: 08/23/2023 12:19 PM Damián [id number] [email or web address] Electronically signed by: Miguel Diaz M.D. 08/23/2023 12:52 PM
--- NOTE | 2023-08-23 13:44 | Hospitalist Progress Note ---
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 He is being managed for the following: . Hypoxia: At presentation noted to be hypoxic in the 80s, does not use O2 at home, not noted to be in respiratory distress or using accessory muscles of respiration at presentation per ED and H&P note. Acute worsening of Chronic cough Chronic rhinitis: Likely exacerbating his chronic cough. Pulm on boardantihistamine, PPI, nasal saline rinses & topical nasal steroid [patient has allergy to topical nasal steroid]. 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 Patient denied febrile illness or sore throat. 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 Notes never smoked, no known sick contacts currently. Admitting labs: WBC WNL, BNP 426, troponin flat trended in 20s, respiratory viral panel negative. Imagings: CXR with no acute finding. CT chest with no acute finding. A stable moderate elevation of the right hemidiaphragm since 2020. Right lower lobe atelectasis noted. Dilatation of the central pulmonary arteries noted which raises the possibility of pulmonary arterial hypertension. Sinuses CT: No new acute finding. Patient was given Rocephin and azithromycin in the ED on 08/21, no concern of pneumonia on imaging. Continue to monitor off antibiotic. Pulmonology on board, appreciate recommendation. Hypoxia likely multifactorial given history of systolic CHF and generalized deconditioning. Two-step test prior to discharge. Continue symptomatic treatment for cough. Follow admitting blood culture History of systolic heart failure, chronic: Patient reports shortness of breath with exertion which is chronic in nature and has not increased recently. Trace BLE edema, no congestion or chest imaging. Takes 20 mg Lasix 3 times a week, will make it daily while in the hospital and assess clinically. Monitor and replete electrolytes as appropriate. Of note, Echo this admission with EF of 25 to 29%, there is moderate size apical, septal, anteroseptal wall motion abnormality with akinesis of the apical segments. The inferior posterior wall is hypokinetic at the base and mid level as is the lateral wall. Echo 10/01/2021: EF 34%. There is a moderate size apical, septal, anteroseptal wall motion abnormality with akinesis of the apical segments. The inferior posterior wall is hypokinetic at the base and mid level as is the lateral wall. Close f/u w/ cardio upon discharge. Elevated troponin, likely demand ischemia: Troponin flat trended in 20s. Patient with no chest pain. EKG without acute ST or T changes. Echo as above. Other chronic medical history: Continue with/resume home meds as and when able. CAD s/p stent placement HFrEF Pacemaker in situ Hx of mural thrombus HTN HLD Significant cardiac Hx as above Continue home coreg, statin, aspirin, Eliquis and Lasix Consider cardiology consult for any noted lab/symptom changes from baseline Continue other home meds as ordered DVT prophylaxis: On home Eliquis Dispo: Med/Surg with tele. Two-step test. PT/OT. Admission and Anticipated Discharge Date Admission Date: August 22, 2023 Subjective Patient was seen and examined at bedside. Patient was lying in bed, on 3 L oxygen via nasal cannula, NAD, resting comfortably. Patient reports having persistent dry cough since 3 to 4 days, denies fever or sore throat. Patient does report shortness of breath with exertion which is chronic and has not increased in intensity per patient. He does not use any home oxygen. Patient reports eating okay and moving bowels okay, denies chest pain. Physical Exam Physical Exam: General: Alert, oriented. No acute distress on 3L NC O2 Skin: No noted rashes or bruises Psych: Appropriate mood and affect Neuro: No gross deficits HEENT: NC/AT Chest: Nontender to palpation. CV: RRR Resp: Breath sounds decreased bibasal, no increased effort of breathing. no crackles/rhonci/wheeze Abdomen: Soft, nontender, nondistended. Extremities: No edema in lower extremities bilaterally. Results & Data Results & Data Vital Signs (Past 12 Hours) Vital Signs Temp Pulse Pulse Resp BP BP Pulse Ox 08/23/23 13:00 08/23/23 11:44 75 20 108/71 95 08/23/23 11:22 77 L 08/23/23 09:00 08/23/23 07:59 100 H 08/23/23 07:10 37.0 C 86 20 122/77 92 08/23/23 04:00 146/66 H 08/23/23 03:00 116/68 88 L 08/23/23 02:00 138/72 91 Pulse Ox Pulse Ox Pulse Ox O2 Del Method O2 Flow Rate O2 Flow Rate O2 Flow Rate 08/23/23 13:00 95 95 87 L 2 2 08/23/23 11:44 Nasal Cannula 2 08/23/23 11:22 Room Air 08/23/23 09:00 Nasal Cannula 4 08/23/23 07:59 08/23/23 07:10 Nasal Cannula 2 08/23/23 04:00 08/23/23 03:00 08/23/23 02:00 O2 Flow Rate 08/23/23 13:00 0 08/23/23 11:44 08/23/23 11:22 08/23/23 09:00 08/23/23 07:59 08/23/23 07:10 08/23/23 04:00 08/23/23 03:00 08/23/23 02:00 (2) Cough Cough type: unspecified Qualified Code(s): R05.9 - Cough, unspecified
--- NOTE | 2023-08-23 16:17 | Electrocardiogram Report ---
Test Reason : Blood Pressure : / mmHG Vent. Rate : 079 BPM Atrial Rate : 079 BPM P-R Int : 162 ms QRS Dur : 090 ms QT Int : 338 ms P-R-T Axes : 026 030 102 degrees QTc Int : 387 ms Normal sinus rhythm Possible Inferior infarct (cited on or before 23-OCT-2020) Poor R wave progression, consider anterior TX vs. lead placement vs. LVH Abnormal ECG When compared with ECG of 07-APR-2021 14:00, No significant change was found Confirmed by Pepito Rodriguez ([id number]) on 08/23/2023 4:17:21 PM Referred By: REFERRED SELF Confirmed By:Pepito Rodriguez
[2023-08-23] MEDS: ALBUT/IPRATROP 3MG/0.5MG NEB 3 ML VIAL NEB PRN (17:19)
[2023-08-23] MEDS: hydrOXYzine HCl 10 MG TAB PO SCH (19:40)
[2023-08-23 20:09] LABS: Appearance Urine Clear (Clear); Bilirubin Urine Negative (Negative); Blood Urine Negative (Negative); Color Urine Yellow; Glucose Urine UA Negative (Negative); Ketones Urine Negative (Negative); Leukocyte Esterase Urine Negative (Negative); Nitrite Urine Negative (Negative); Protein Urine Negative (Negative); Specific Gravity Urine 1.012 (1.000-1.030); Urobilinogen Urine Negative (Negative); pH Urine 5.5 (4.5-7.5)
[2023-08-23] MEDS: guaiFENesin 600 MG TABCR PO SCH (21:53)
[2023-08-23] MEDS: ASPIRIN 81 MG CHEW ONE ×2 (21:58→22:02)
[2023-08-24] MEDS: HYDROcodone/HOMATROPINE SYRUP 5MG/1.5MG 5ML UDP PO PRN (03:41)
[2023-08-24 06:14] LABS: Hematocrit (blood only) 38.5 % (42.0-52.0); Hemoglobin 12.2 g/dl (14.0-18.0); Mean Corpuscular Hemoglobin 28.6 pg (25.0-34.0); Mean Corpuscular Hgb Conc 31.7 g/dL (32.0-36.0); Mean Corpuscular Volume 90.2 fL (80.0-100.0); Mean Platelet Volume 10.4 fL (9.4-12.4); Platelet Count 180 K/uL (130-400); RDW Coefficient of Variation 12.9 % (11.5-14.5); RDW Standard Deviation 42.3 fL (36.4-46.3); Red Blood Count 4.27 M/uL (4.70-6.10); White Blood Count 6.73 K/ul (4.8-10.8)
[2023-08-24 06:30] LABS: BUN Creatinine Ratio 10.9 (10-20); Calcium 8.4 mg/dl (8.6-10.3); Est GFR (African American) 92.7 ml/min; Est GFR (Non-African American) 79.9 ml/min; Phosphorus 3.1 mg/dl (2.5-4.9); Potassium 4.4 mmol/L (3.5-5.1)
--- NOTE | 2023-08-24 08:24 | Pulmonology Progress Note ---
Date of Service August 24, 2023 Assessment & Plan (1) Chronic cough: (2) Hypoxia: (3) Chronic rhinitis: Plan IMPRESSION: 78-year-old male with significant past medical history of coronary artery disease, CHF, and chronic cough who presents with worsening hypoxia and baseline cough requiring pulmonary consult. RECOMMENDATIONS: 1. Cough - Chronic cough with likely upper airway cough syndrome component. Continue with hydroxyzine. Encourage incentive spirometry. CT findings with atelectasis. Concerns for possible elevated PA pressures on CT, however this is not redemonstrated on echocardiogram performed yesterday. Encourage out of bed to chair and ambulation as tolerated. 2. Hypoxia - Likely multifactorial in a 78-year-old male with chronic CHF generalized deconditioning. I was able to titrate the patient down to off of his supplemental oxygen while assessing him. Would encourage incentive spirometry and ambulation as tolerated. Would recommend to step evaluation prior to discharge to assess oxygen requirement. Patient is currently anticoagulated on Eliquis. Thromboembolic process much less likely, but not completely off the table. Would still hold on CTA. Continue his home Eliquis dosing. 3. Chronic rhinitis - Likely contributing to degree of his acute cough. Would recommend treatment for upper airway cough syndrome including antihistamine, PPI, nasal saline rinses, and topical nasal steroid. Unfortunately, he has an allergy to topical nasal steroid. Will add what we can to his regime. Thank you for allowing us to participate in the care of this patient. Admission and Anticipated Discharge Date Admission Date: August 22, 2023 Supervising Physician Co-Signing Physician Notes I saw and evaluated the patient with Dmitri Anaya, and agree with findings and plan as documented in the note. Patient seen and examined bedside. No acute distress, no dressings overnight He was saturating 97% on 2 L nasal cannula. He stated that he is feeling better. Shortness of breath is improved Cough is also decreased in intensity. Denies any chest pain Fair appetite Social history: Lifetime non-smoker CT chest 08/23/2023 personally reviewed: Linear atelectasis of the right lower lobe with elevated right hemidiaphragm No clear infiltrate Enlarged pulmonary artery with cardiomegaly No mediastinal adenopathy Constitutional: No acute distress HEENT: EOMI, PERRLA, suprasternal midline scar Respiratory system: Decreased air entry on the right lower side, no wheeze, no rhonchi, no crackles CVS: S1-S2 positive, no murmurs or gallops Abdomen: Soft, nontender, nondistended, positive bowel sounds x4 Extremities: +2 pulses bilaterally radialis/ dorsalis pedis, no cyanosis, m inimal pitting edema bilateral lower extremity Neuro: Awake alert oriented x3 Psych: Normal mood and affect G/U: No Paige Plan: Continue with hydroxyzine 3 times daily for the time being. Would recommend to decrease the dose to twice daily in the near future and then as needed for postnasal drip. Outpatient he can use chlorpheniramine as needed with severe symptoms and the counter antihistamines like Angie/Claritin/Xyzal when symptoms are mild Guaifenesin-DM owoso-oyk-jgchj while in the hospital Continue with incentive spirometry No further recommendation from pulmonary perspective, will sign off Please call directly with any questions Please note the above document was generated using voice recognition software. It may contain grammatical, syntax or spelling errors.Any formal questions or concerns about the content, text or information contained within the body of this dictation should be directly addressed to the provider for clarification. Subjective Patient seen and evaluated at bedside. He reports intermittent sleep throughout the night which is his baseline. Persistent cough. No complaints of chest pain, palpitations, dizziness, lightheadedness, or presyncope. Review of Systems 2 Review of Systems: A complete 10 point review of systems was reviewed with the patient with pertinent positives and negatives as per history of present illness. All else were negative. Physical Exam 2 Physical Exam: VITAL SIGNS - Vital signs and nursing notes were reviewed. GENERAL - 78-year-old male appearing his stated age who is in no acute distress. Communicates well with provider and answers questions appropriately. LUNGS - Chest wall evaluation demonstrates normal chest wall A:P diameter. Auscultation reveals diminished breath sounds at the bases without wheezes, rales, or rhonchi appreciated. CARDIAC - RRR with S1/S2. No murmur, rubs, or gallops appreciated. EXTREMITIES - Nail clubbing no5 present. No peripheral cyanosis. Mild pretibial edema present. +3/5 radial palpated throughout. PSYCH - A&Ox3 and cooperates fully with examiner. Pt is very pleasant and interacts well with examiner. Results & Data Results & Data Vital Signs (Past 12 Hours) Vital Signs Temp Pulse Pulse Resp BP BP Pulse Ox 08/24/23 08:12 37.2 C 89 20 151/86 H 92 08/24/23 07:52 99 H 08/24/23 03:13 36.8 C 106 H 20 125/67 92 08/23/23 23:48 81 08/23/23 23:00 37.3 C 78 18 114/67 96 08/23/23 22:36 O2 Del Method O2 Flow Rate 08/24/23 08:12 Nasal Cannula 2 08/24/23 07:52 08/24/23 03:13 Nasal Cannula 2 08/23/23 23:48 08/23/23 23:00 Nasal Cannula 2 08/23/23 22:36 Nasal Cannula 2 Laboratory Results 08/24/23 05:44 08/24/23 05:44 PG Care Time/CCT Total # of Minutes Spent Total Time Spent with Patient: Total time spent is greater than 50% in coordination of care (as documented) at patient's floor/unit and/or counseling patient: Coding Level of Care Code 71803 SUB INP/OBS CARE 2/35MIN Diagnoses Chronic cough R05.3 Hypoxia R09.02 Chronic rhinitis J31.0
[2023-08-24] MEDS: FUROSEMIDE 20 MG TAB PO SCH (09:24)
[2023-08-24] MEDS: guaiFENesin/DEXTROM SYRUP 200MG/20MG 10ML UDC PO SCH (15:01)
--- NOTE | 2023-08-24 16:00 | Hospitalist Progress Note ---
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 He is being managed for the following: . Hypoxia: At presentation noted to be hypoxic in the 80s, does not use O2 at home, not noted to be in respiratory distress or using accessory muscles of respiration at presentation per ED and H&P note. Acute worsening of Chronic cough, UACS Chronic rhinitis: Likely exacerbating his chronic cough. Pulm on boardantihistamine, PPI, nasal saline rinses & topical nasal steroid [patient has allergy to topical nasal steroid]. 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 Patient denied febrile illness or sore throat. 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 Notes never smoked, no known sick contacts currently. Admitting labs: WBC WNL, BNP 426, troponin flat trended in 20s, respiratory gordon l panel negative. Imagings: CXR with no acute finding. CT chest with no acute finding. A stable moderate elevation of the right hemidiaphragm since 2020. Right lower lobe atelectasis noted. Dilatation of the central pulmonary arteries noted which raises the possibility of pulmonary arterial hypertension. Sinuses CT: No new acute finding. Patient was given Rocephin and azithromycin in the ED on 08/21, no concern of pneumonia on imaging. Continue to monitor off antibiotic. Pulmonology on board, appreciate recommendation. Guaifenesin DM [id number] while in hospital, hydroxyzine 3 times daily to be tapered to twice daily on discharge and then as needed in near future. Use of chlorpheniramine and antihistamines for symptom control. Hypoxia likely multifactorial given history of systolic CHF and generalized deconditioning. Two-step test prior to discharge. Continue symptomatic treatment for cough. Follow admitting blood culture History of systolic heart failure, chronic: Patient reports shortness of breath with exertion which is chronic in nature and has not increased recently. Trace BLE edema, no congestion or chest imaging. Takes 20 mg Lasix 3 times a week, will make it daily while in the hospital and assess clinically. Monitor and replete electrolytes as appropriate. Of note, Echo this admission with EF of 25 to 29%, there is moderate size apical, septal, anteroseptal wall motion abnormality with akinesis of the apical segments. The inferior posterior wall is hypokinetic at the base and mid level as is the lateral wall. Echo 10/01/2021: EF 34%. There is a moderate size apical, septal, anteroseptal wall motion abnormality with akinesis of the apical segments. The inferior posterior wall is hypokinetic at the base and mid level as is the lateral wall. Close f/u w/ cardio upon discharge. Elevated troponin, likely demand ischemia: Troponin flat trended in 20s. Patient with no chest pain. EKG without acute ST or T changes. Echo as above. Other chronic medical history: Continue with/resume home meds as and when able. CAD s/p stent placement HFrEF Pacemaker in situ Hx of mural thrombus HTN HLD Significant cardiac Hx as above Continue home coreg, statin, aspirin, Eliquis and Lasix Consider cardiology consult for any noted lab/symptom changes from baseline Continue other home meds as ordered DVT prophylaxis: On home Eliquis Dispo: Med/Surg with tele. Two-step test. PT/OT. Admission and Anticipated Discharge Date Admission Date: August 22, 2023 Subjective Patient was seen and examined at bedside. Patient was sitting up in chair, on 2 L oxygen via nasal cannula, NAD, resting comfortably. Patient reports having persistent dry cough , not improved much. Patient does report shortness of breath with exertion which is chronic and has not increased in intensity per patient. He does not use any home oxygen. Patient reports eating okay and moving bowels okay, denies chest pain. Physical Exam Physical Exam: General: Alert, oriented. No acute distress on 2L NC O2 Skin: No noted rashes or bruises Psych: Appropriate mood and affect Neuro: No gross deficits HEENT: NC/AT Chest: Nontender to palpation. CV: RRR Resp: Breath sounds decreased bibasal, no increased effort of breathing. no crackles/rhonci/wheeze Abdomen: Soft, nontender, nondistended. Extremities: No edema in lower extremities bilaterally. Results & Data Results & Data Vital Signs (Past 12 Hours) Vital Signs Temp Pulse Pulse Resp BP Pulse Ox O2 Del Method 08/24/23 13:05 36.8 C 84 19 115/65 94 Nasal Cannula 08/24/23 08:12 37.2 C 89 20 151/86 H 92 Nasal Cannula 08/24/23 07:52 99 H O2 Flow Rate 08/24/23 13:05 2 08/24/23 08:12 2 08/24/23 07:52 (2) Cough Cough type: unspecified Qualified Code(s): R05.9 - Cough, unspecified
[2023-08-25 08:36] LABS: Hemoglobin 12.3 g/dl (14.0-18.0); Mean Corpuscular Hemoglobin 28.7 pg (25.0-34.0); Mean Corpuscular Hgb Conc 32.4 g/dL (32.0-36.0); Mean Corpuscular Volume 88.8 fL (80.0-100.0); Mean Platelet Volume 10.1 fL (9.4-12.4); Platelet Count 195 K/uL (130-400); RDW Coefficient of Variation 12.9 % (11.5-14.5); Red Blood Count 4.28 M/uL (4.70-6.10); White Blood Count 6.13 K/ul (4.8-10.8)
[2023-08-25 08:54] LABS: BUN Creatinine Ratio 11.6 (10-20); Calcium 8.1 mg/dl (8.6-10.3); Creatinine Clr Calc Pharmacy 79.4 ml/min; Est GFR (African American) 89.1 ml/min; Est GFR (Non-African American) 76.9 ml/min; Magnesium 1.9 mg/dl (1.7-2.4); Phosphorus 2.9 mg/dl (2.5-4.9)
--- NOTE | 2023-08-25 16:43 | Discharge Summary ---
Date of Service August 25, 2023 Admission HPI Per Admitting Provider Pt is a 78yoM with past medical history significant for type 2 diabetes, currently not on any medication, hyperlipidemia, chronic CAD status post CABG x2, status post 6 stents as per the patient, chronic systolic CHF, EF of 40% to 45%, status post ICD and pacemaker, history of left ventricular mural thrombus on Eliquis, ischemic cardiomyopathy, hypertension, diverticulosis of colon, BPH, pernicious anemia admitted with acute hypoxic respiratory failure in the setting of a chronic cough.. 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 Presented to the ED for further evaluation, noted to be hypoxic in the 80s. Admission Exam Per Admitting Provider General: Alert, oriented. No acute distress but sitting in chair at bedside rather than bed due to coughing fits Skin: No noted rashes or bruises Psych: Appropriate mood and affect Neuro: No gross deficits HEENT: NC/AT Chest: Nontender to palpation. CV: RRR Resp: Breath sounds decreased bilaterally, no increased effort of breathing. Abdomen: Soft, nontender, nondistended. Extremities: No edema in lower extremities bilaterally Principal Diagnosis Acute hypoxic respiratory failure Upper airway cough syndrome Discharge Exam Constitutional: WD/WN, vitals as above, NAD, sitting up in bed, pleasant, conversing easily Respiratory: Bilateral vesicular breath sound Cardiovascular: RRR, no murmur, no edema Vessels: no JVD or carotid bruit Chest: normal inspection of chest Abdomen: normal bowel sounds, soft, nontender, no hepatosplenomegaly Musculoskeletal: no cyanosis or clubbing, extremities motor strength 5/5 Skin: no rashes, warm and dry normal turgor Neurologic: PERRL, EOMI, accommodation nl, no face palsy, no dysarthria CN's II- XI intact bilaterally and moves all extremities Psychiatric: A+Ox3, euthymic affect Discharge Data Allergies Allergy/AdvReac Type Severity Reaction Status Date / Time mometasone furoate Allergy Intermediate HIVES/RASH Verified 08/22/23 17:30 niacin Allergy Intermediate FLUSHING Verified 08/22/23 17:29 AND ITCHING pregabalin Allergy Intermediate RASH & Verified 08/22/23 17:29 MOOD CHANGES morphine Allergy Unknown UNKNOWN ON Verified 08/22/23 17:29 GMG MED LIST atorvastatin [From Lipitor] AdvReac Intermediate NEURO Verified 08/22/23 17:29 COMPLICATIONS lisinopril AdvReac Intermediate COUGH Verified 08/22/23 17:29 vaccine adjuvant system, AdvReac Intermediate INFLUENZA-LIKE Verified 08/22/23 17:29 [id number] liposomal ILLNESS [From Shingrix (PF)] valsartan AdvReac Intermediate Cough Verified 08/22/23 17:29 varicella-zoster virus AdvReac Intermediate INFLUENZA-LIKE Verified 08/22/23 17:29 glycoprotein E, recombinant ILLNESS [From Shingrix (PF)] adhesive AdvReac Mild OPSITE-RASH Verified 08/22/23 17:29 Consultations 08/22/23 18:22 ED Decision to Admit Stat 08/22/23 20:00 Consult Pulmonology Routine Ordered Studies 08/23/23 09:29 CT chest without contrast [CT chest diagnostic wo con] Urgent CT sinus wo con Urgent Hospital Course (1) Acute hypoxic respiratory failure: (2) Cough: Plan 78yoM with PMH of type 2 diabetes (a1c 6.3 this admission)/currently not on any medication, hyperlipidemia, chronic CAD s/p CABG x2 & s/p 6 stents as per the patient, chronic systolic CHF, s/p ICD and pacemaker, history of left ventricular mural thrombus on Eliquis, ischemic cardiomyopathy, hypertension, diverticulosis of colon, BPH, pernicious anemia admitted with hypoxia in the setting of acute worsening of chronic cough. Admitting labs: WBC WNL, BNP 426, troponin flat trended in 20s, respiratory viral panel negative. Imagings: CXR with no acute finding. CT chest with no acute finding. A stable moderate elevation of the right hemidiaphragm since 2020. Right lower lobe atelectasis noted. Dilatation of the central pulmonary arteries noted which raises the possibility of pulmonary arterial hypertension. Sinuses CT: No new acute finding. Pulmonology was consulted for comanagement. He was started on antihistaminics, nasal spray. Patient's oxygen requirement down trended gradually during the hospitalization 2 step oxygen evaluation was done; patient did not require oxygen at rest and exertion. Please note the above document was generated using voice recognition software. It may contain grammatical, syntax or spelling errors. Any formal questions or concerns about the content, text or information contained within the body of this dictation should be directly addressed to the provider for clarification Total Time Total Time Spent Total Time Spent (In Minutes): 35 Total Time Includes: Examination of the Patient, Discharge Planning, Medication Reconciliation, Communication With Other Providers and Other Discharge Plan Discharge Items Patient Disposition: Home - Self-Care Reason For Visit: SOB Discharge Diagnosis: Upper airway cough syndrome Activity: Resume your previous activity Non-emergency contact: Primary Care Provider Call non-emergency contact if: you have any medication questions Follow-up/Referrals: Jairon Park MD [Outside Practitioners] - Diet: Regular Addtl Attending Provider Instructions: You were admitted to the hospital due to shortness of breath. The likely cause for it is a pulmonary airway reaction to the allergens. You are prescribed Claritin to be taken daily once a day. You are also prescribed Tessalon Perles to be taken 3 times a day as needed for cough. An appointment with her primary care doctor will be made up for sometime next week. Pending Studies at Discharge: No Stand-Alone Forms: My [employer], Smoking Cessation Medications and DC Order Prescriptions: New loratadine [Claritin] 10 mg tablet 10 mg PO DAILY Qty: 30 0RF benzonatate 100 mg capsule 100 mg PO TID PRN (Reason: cough) Qty: 14 0RF Continued carvedilol [Coreg] 25 mg Tablet 12.5 mg PO BID aspirin [Jimmie Low Dose Aspirin] 81 mg Tablet,Delayed Release (Dr/Ec) 81 mg PO DAILY pantoprazole [Protonix] 40 mg Tablet,Delayed Release (Dr/Ec) 40 mg PO QAM rosuvastatin [Crestor] 40 mg Tablet 20 mg PO DAILY furosemide [Lasix] 20 mg Tablet 20 mg PO [id number] Patient Comments: MON, MON AND MON MORNING HOURS Rx Instructions: Monday, Monday, Monday nitroglycerin [Nitrostat] 0.4 mg Tablet, Sublingual 0.4 mg sublingual UD PRN (Reason: Chest Pain) Patient Comments: pt can't remember the last time he used multivitamin [Daily Multi-Vitamin] Tablet 1 tab PO QAM Eliquis 5 mg Tablet 5 mg PO BID cyanocobalamin (vitamin B-12) [Vitamin B-12] 1,000 mcg Tablet 1,000 mcg PO DAILY benzonatate 100 mg capsule 100 - 200 mg PO TID PRN (Reason: Cough) Discharge Orders: Discharge Order (Routine); Ordered 08/25/23 Ordered By: Jerome King/Other Patient Handouts: Managing Type 2 Diabetes Admission Data Admit Date/Time: 08/22/23 18:46 Attending Provider: Jerome Jerry Admit Provider: Joanne Montalvo Primary Care Provider: Riana Bennett Other Providers: Joanne Montalvo; Lesa De Anda; [facility] Other Interventions: Discharge Summary Assessment (RN) Last Done: 08/25/23 14:14
== END 2023-08-25 16:52 | disposition home or self-care (01) | DRG 189 ==
LOC: ED 15:51 → EDINP 18:46 → SUATTDRO 18:46 → 2W 21:27
DX: I25.5 Ischemic cardiomyopathy; I25.10 Atherosclerotic heart disease of native coronary artery without angina pectoris; Z79.01 Long term (current) use of anticoagulants; Z95.5 Presence of coronary angioplasty implant and graft; Z88.8 Allergy status to other drugs, medicaments and biological substances; Z95.1 Presence of aortocoronary bypass graft; N40.0 Benign prostatic hyperplasia without lower urinary tract symptoms; J96.01 Acute respiratory failure with hypoxia; R05.3 Chronic cough; R79.89 Other specified abnormal findings of blood chemistry; I24.89 Other forms of acute ischemic heart disease; Z79.82 Long term (current) use of aspirin; Z88.5 Allergy status to narcotic agent; J31.0 Chronic rhinitis; I11.0 Hypertensive heart disease with heart failure; Z91.048 Other nonmedicinal substance allergy status; I50.22 Chronic systolic (congestive) heart failure; Z79.899 Other long term (current) drug therapy; E78.5 Hyperlipidemia, unspecified; E11.42 Type 2 diabetes mellitus with diabetic polyneuropathy; Z88.7 Allergy status to serum and vaccine